=== PATIENT | male | born 1960 | race Caucasian/White ===

== ENCOUNTER 2023-12-17 09:18 | Inpatient (IN) | payer OTHER, SELFPAY ==
[2023-12-17] VITALS (23 sets, daily range): BP systolic 115–167; BP diastolic 70–104; PULSE 56–94; RESP 12–20; TEMP 36.3–36.9; O2SAT 95–99; BMI 32.0; BMI 31.2
--- NOTE | 2023-12-17 09:32 | ED.VIS.CHEST ---
HPI History of Present Illness Chief Complaint: Chest Pain Onset/Context/Timing Onset: Today and Hours (3) Activity at onset: sudden Timing: Continuous Quality: Positive for Pressure and Tightness Location: Substernal Worsened By: Nothing Relieved By: NTG Associated Symptoms: Positive for Diaphoresis and Dyspnea; Negative for Nausea, Vomiting, Cough, Fever, Lightheadedness or Palpitations Narrative Narrative: Patient presents with chest pain that began this morning approximately 3 hours prior to arrival. Patient states the pain is over the substernal area. Patient states it came on rather suddenly. Patient describes it as pressure and tightness. Patient states nothing makes it worse. Patient states he took nitroglycerin at home which improved his pain. Patient admits to some diaphoresis and shortness of breath. Patient denies any nausea or vomiting. Patient denies any palpitations. Patient has a history of coronary artery disease. [facility] Medical History Hyperlipidemia Hypertension Home Medications alprazolam 0.5 mg tablet 0.25 mg PO BID PRN PRN Anxiety 11/24/13 [History Last Taken Unknown] amoxicillin 875 mg-potassium clavulanate 125 mg tablet 1 tab PO Q12H ##20 12/13/13 [Rx Last Taken Unknown] aspirin 325 mg tablet 325 mg PO DAILY@0800 12/13/13 [History Last Taken Unknown] atorvastatin 40 mg tablet 40 mg PO QHS 12/13/13 [History Last Taken Unknown] clopidogrel 75 mg tablet 75 mg PO DAILY 12/13/13 [History Last Taken Unknown] Allergy/AdvReac Type Severity Reaction Status Date / Time No Known Allergies Allergy Verified 11/24/13 22:41 Surgical History H/O hernia repair History of heart artery stent History of knee surgery History of open heart surgery Social History Smoking Status: Never smoker ROS ROS ED Constitutional Constitutional ED: Denies chills or fever(s) Eyes Eyes: Denies blurry vision or change in vision ENT ENT ED: Denies rhinorrhea or sore throat Cardiovascular Cardiovascular: Reports chest pain; Denies palpitations Respiratory/Chest Respiratory/Chest: Denies cough or dyspnea Gastrointestinal Gastrointestinal: Denies nausea or vomiting Genitourinary Genitourinary ED: Denies dysuria or hematuria Musculoskeletal Musculoskeletal: Denies back pain or neck pain Integumentary Denies abscess or rash Neurologic Neurologic: Denies headache(s) or weakness Allergic/Immunologic Allergic/Immunologic ED: Denies mouth swelling or urticaria EXAM Physical Exam Const Vital Signs: 12/17/23 09:19 12/17/23 09:31 12/17/23 09:31 Temperature 97.8 F Temperature Source Temporal Pulse Rate 72 84 Respiratory Rate 16 17 Respiratory Effort Normal Blood Pressure 159/87 H 161/94 H Blood Pressure Mean 111 116 Pulse Ox 98 99 Oxygen Delivery Method Room Air Room Air 12/17/23 09:33 12/17/23 09:36 12/17/23 09:54 Temperature Temperature Source Pulse Rate 74 Respiratory Rate 17 14 Respiratory Effort Blood Pressure 166/82 H 151/93 H Blood Pressure Mean 112 Pulse Ox 99 Oxygen Delivery Method Room Air Room Air 12/17/23 10:02 Temperature Temperature Source Pulse Rate 74 Respiratory Rate 12 Respiratory Effort Blood Pressure 164/91 H Blood Pressure Mean 115 Pulse Ox 98 Oxygen Delivery Method Room Air Positive well nourished and well developed General Appearance ED: well developed and NAD HEENT Reports moist mucous membranes Neck supple and no JVD Resp normal respiratory effort and clear to auscultation bilaterally Cardio regular rate and regular rhythm Extremity normal to inspection General Extremety ED: Negative for edema, pulses abnormal or tenderness General Extremity: Negative for edema or pulses abnormal Neuro oriented x3, CN's II-XII intact bilaterally and no sensory deficits noted Sensorium / Orientation: awake and alert Motor Exam: strength 5/5 throughout Psych mental status grossly normal Heart Score History: Highly Suspicious ECG: Significant ST-Depression Age: >45 - <65 years Risk Factors: >/= 3 Risk Factors or History of CAD Score: 7 MDM MDM MDM Narrative Medical decision making narrative: Differential diagnosis includes cardiac dysrhythmia, cardiac ischemia, VA, and GERD. EKG will be obtained to assess for cardiac dysrhythmia and cardiac ischemia. CBC will be obtained to assess for leukocytosis and anemia. Basic metabolic profile will be obtained to assess for electrolyte abnormality and renal function. PT with INR and PTT will be obtained to assess for coagulopathy. High-sensitivity troponin will be obtained to assess for cardiac ischemia. Lab Data Attestation: I reviewed the patient's lab results. Lab results narrative: CBC was reviewed and was within normal limits. PT with INR and PTT were reviewed and were within normal limits. Labs: Laboratory Results - last 24 hr 12/17/23 09:35 WBC 6.5 RBC 4.68 Hgb 14.7 Hct 43.2 MCV 92.3 MCH 31.4 MCHC 34.0 RDW Std Deviation 40.3 RDW Coeff of Sea 11.9 Plt Count 234 MPV 8.7 Immature Gran % (Auto) 0.500 Neut % (Auto) 72.2 H Lymph % (Auto) 18.2 L [place] % (Auto) 7.7 Eos % (Auto) 0.8 Baso % (Auto) 0.6 Absolute Neuts (auto) 4.7 Absolute Lymphs (auto) 1.18 Nucleated RBC % 0 PT 13.2 INR 1.0 APTT 28.4 EKG Initial EKG: Attestation: I personally reviewed and interpreted this EKG as follows: Interpretation: Sinus Rhythm, S-T Elevation (III, and aVF) and S-T Depression (I, aVL, V3 through V6) Comments: EKG was obtained. On my independent interpretation, it shows normal sinus rhythm with a rate of 75. ID interval was normal at 196 ms. QRS interval was normal at 92 ms. QTc interval was normal at 437 ms. There is left axis deviation at -77. There is ST elevation in leads III and aVF. There is ST depression in I and aVL along with V3 through V6. 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 Patient was given heparin, Brilinta, and baby aspirin. Case was discussed with Dr. Bowen from cardiology. He will take the patient to the [facility]. Case was discussed with the hospitalist. He will admit the patient after the patient goes to the [facility]. Critical Care Time Critical Care Time: Yes Critical care time (excluding procedures): 30-74 minutes (33), Including time spent:, Discussing w/Patient &/or Family/Inspector Bullet Slugs, Discussing w/Consultants, Arranging Admission or Transfer and Performing Direct Patient Care at Bedside Discharge Plan Dx/Rx/DC Orders Clinical Impression: Acute ST elevation myocardial infarction (STEMI), Hypercholesterolemia, Hypertension Disposition Disposition: Acute Care Hospital [facility]
--- NOTE | 2023-12-17 09:33 | EKG12_ITS ---
Test Reason : CP Blood Pressure : / mmHG Vent. Rate : 075 BPM Atrial Rate : 075 BPM P-R Int : 196 ms QRS Dur : 092 ms QT Int : 392 ms P-R-T Axes : 070 -77 109 degrees QTc Int : 437 ms Critical Test Result: STEMI Normal sinus rhythm Left axis deviation Incomplete right bundle branch block Inferior infarct (cited on or before 24-NOV-2013) Marked ST abnormality, possible lateral subendocardial injury ACUTE OR / STEMI Consider right ventricular involvement in acute inferior infarct Abnormal ECG When compared with ECG of 13-DEC-2013 17:25, Incomplete right bundle branch block is now Present Borderline criteria for Anterior infarct are now Present Confirmed by Kam Perera ([id number]), newspaper or periodical editor DEBBIE EISENBERG ([id number]) on 12/19/2023 10:25:33 AM Referred By: Hannah Bowen Confirmed By:Kam Perera
--- OUTSIDE RECORDS SUMMARY | 2023-12-17 09:39 | XMS RPT_ITS | CCD ---
Author Name Unknown Address [address] [place] [address] Organization [facility] Results Test Name Value Interpretation Reference Range Facil ity Summary Purpose Family History No Family History Records Found Advance Directives No Advanced Directives Records Found Additional Source Comments (unrecognized sect ion and content) No Status Records Found INFORMATION SOURCE (unrecogn ized section and content) FOR RECORDS PERTAINING TO PATIENTS WHO ARE OR HAVE BEEN ENROLLED IN A CHEMICAL DEPENDENCY/SUBSTANCEABUSE PROGRAM, SOME INFORMATION MAY BE OMITTED. This clinical summary was aggregated from multiple sources. Caution should be exercised in using it in the provision of clinical care. This summary normalizes information from multiple sources, and as a consequence, information in this document may materially change the coding, format and clinical context of patient data. In addition, data may be omitted in some cases. CLINICAL DECISIONS SHOULD BE BASED ON THE PRIMARY CLINICAL RECORDS. [employer] provides no warranty or guarantee of the accuracy or completeness of information in this document.
[2023-12-17] MEDS: TICAGRELOR 90 MG TABLET 180 MG PO (09:41)
[2023-12-17] MEDS: Heparin Injection (Vial) 5,000 UNIT/ML VIAL 4000 UNIT IV (09:41)
[2023-12-17] MEDS: Aspirin 81 MG TAB.CHEW 324 MG PO (09:41)
[2023-12-17 09:50] LABS: Absolute Lymphocyte Count 1.18 X10^3/uL (0.83-4.51); Absolute Neutrophil Count 4.7 X10^3/uL (2.0-7.7); Basophil# 0.04 X10^3/uL; Basophil% 0.6 % (0-1); Eosinophil# 0.05 X10^3/uL; Eosinophils% 0.8 % (0-5); Hematocrit 43.2 % (40-54); Hemoglobin 14.7 g/dL (13.0-16.5); Lymphocyte # 1.18 X10^3/ul (0.83-4.51); Lymphocyte % 18.2 % (19-41); Mean Corpuscular Hgb 31.4 pg (27.0-32.0); Mean Corpuscular Volume 92.3 fL (80-94); Mean Platelet Vol. 8.7 fl (6.2-12.0); Monocyte% 7.7 % (0-10); NRBC Flagged by Analyzer 0 % (0-5); Neutrophil % 72.2 % (47-70); Platelet Count 234 K/mm3 (150-450); RBC Distribution Width CV 11.9 % (11.6-14.6); RBC Distribution Width SD 40.3 fl (35.1-43.9); Red Blood Count 4.68 M/mm3 (4.6-6.2); White Blood Count 6.5 K/mm3 (4.4-11.0)
[2023-12-17 10:00] LABS: Partial Thromboplast Time 28.4 Seconds (24.1-36.2); Prothrombin Time (Protime)PT. 13.2 SECONDS (11.7-14.9)
[2023-12-17 10:06] LABS: Anion Gap 4 (5-15); BUN 16 mg/dL (7-18); BUN/Creat Ratio 12.9 RATIO (10-20); Calcium,Total 9.4 mg/dL (8.5-10.1); Chloride 105 mmol/L (98-107); Creatinine, Serum 1.24 mg/dL (0.70-1.30); EST Glomerular Filtration Rate 63 mL/min (>60); Est Glom Filt Rate - Afr Amer 76 mL/min (>60); Estimated Creatinine Clearance 73.68 ml/min; Glucose 125 mg/dL (74-106); Sodium Level 136 mmol/L (136-145); Troponin-I HS 302 pg/mL (3.0-78.0)
--- NOTE | 2023-12-17 11:09 | PCM.HP.STD ---
HPI - General General Date of Admission: 12/17/23 Date of Service: 12/17/23 Chief Complaint: chest pain HPI Narrative NHI BAUTISTA, is a 63 M who presents 2-day h/o chest pain. Chest pain was intermittent. Patient was sent to ED at behest of his spouse. Pt found to have ST elevations in III and aVr with reciprocal changes in aVl. STEMI alert called. Pt brought to the [facility] labou[facility] and had stent placed to SVG to OM1. After cath, patient still having chest pain but otherwise feels well. [facility] Medical History CAD (coronary artery disease) Hyperlipidemia Hypertension Home Medications alprazolam 0.5 mg tablet 0.25 mg PO BID PRN PRN Anxiety 11/24/13 [History Last Taken Unknown] amoxicillin 875 mg-potassium clavulanate 125 mg tablet 1 tab PO Q12H ##20 12/13/13 [Rx Last Taken Unknown] aspirin 325 mg tablet 325 mg PO DAILY@0800 12/13/13 [History Last Taken Unknown] atorvastatin 40 mg tablet 40 mg PO QHS 12/13/13 [History Last Taken Unknown] clopidogrel 75 mg tablet 75 mg PO DAILY 12/13/13 [History Last Taken Unknown] Allergy/AdvReac Type Severity Reaction Status Date / Time No Known Allergies Allergy Verified 11/24/13 22:41 Family History (Updated 12/17/23 @ 12:[address] Brandon Hernandez DO) Father CAD (coronary artery disease) Surgical History H/O hernia repair History of heart artery stent History of knee surgery History of open heart surgery Social History (Updated 12/17/23 @ 12:[address] Brandon Hernandez DO) Smoking Status: Never smoker alcohol intake: current alcohol intake frequency: 0-2 drinks per day Alcohol type: wine ROS ROS Narrative All review of systems were negative except as mentioned above in the history of present illness and the other review of systems. Vital Signs Vital Signs Vital Signs: 12/17/23 09:19 12/17/23 09:31 12/17/23 09:31 Temperature 36.6 C Temperature Source Temporal Pulse Rate 72 84 Respiratory Rate 16 17 Respiratory Effort Normal Blood Pressure 159/87 H 161/94 H Blood Pressure Mean 111 116 Pulse Ox 98 99 Oxygen Delivery Method Room Air Room Air 12/17/23 09:33 12/17/23 09:36 12/17/23 09:54 Temperature Temperature Source Pulse Rate 74 Respiratory Rate 17 14 Respiratory Effort Blood Pressure 166/82 H 151/93 H Blood Pressure Mean 112 Pulse Ox 99 Oxygen Delivery Method Room Air Room Air 12/17/23 10:02 12/17/23 10:22 Temperature 36.3 C L Temperature Source Pulse Rate 74 94 Respiratory Rate 12 16 Respiratory Effort Blood Pressure 164/91 H 159/93 H Blood Pressure Mean 115 115 Pulse Ox 98 99 Oxygen Delivery Method Room Air Weight Weight: 101.333 kg Body Mass Index (BMI) 32.0 Physical Exam Const alert and no apparent distress Constitutional Narrative: Appears comfortable. HEENT normocephalic and head/scalp atraumatic Resp normal respiratory effort, no retractions, no use of accessory muscles and clear to auscultation bilaterally Cardio regular rate, regular rhythm, S1 normal heart sound and S2 normal heart sound GI normal to inspection, nondistended, normoactive bowel sounds, soft to palpation, non-tender and non-distended Extremity normal to inspection and full ROM Neuro Sensorium / Orientation: awake and alert Results Lab / Micro Data 12/17/23 09:35 12/17/23 09:35 Labs: Laboratory Results - last 24 hr 12/17/23 09:35: WBC 6.5, RBC 4.68, Hgb 14.7, Hct 43.2, MCV 92.3, MCH 31.4, MCHC 34.0, RDW Std Deviation 40.3, RDW Coeff of Sea 11.9, Plt Count 234, MPV 8.7, Immature Gran % (Auto) 0.500, Neut % (Auto) 72.2 H, Lymph % (Auto) 18.2 L, [place] % (Auto) 7.7, Eos % (Auto) 0.8, Baso % (Auto) 0.6, Absolute Neuts (auto) 4.7, Absolute Lymphs (auto) 1.18, Nucleated RBC % 0, PT 13.2, INR 1.0, APTT 28.4, Sodium 136, Potassium 4.0, Chloride 105, Carbon Dioxide 27.0, Anion Gap 4 L, BUN 16, Creatinine 1.24, Estim Creat Clear Calc 73.68, Est GFR (MDRD) Af Amer 76, Est GFR (MDRD) Non-Af 63, BUN/Creatinine Ratio 12.9, Glucose 125 H, Calcium 9.4, Troponin I High Sens 302 H* EKG Initial EKG: Attestation: I personally reviewed and interpreted this EKG as follows: Prior EKG tracings: available for review EKG Rhythm Intrepretation: Sinus Rhythm (ST elevation in III and aVF.) Imaging On my evaluation, final report pending, appears unremarkable. No evidence of effusion, infiltrate or pleural effusions. Assessment & Plan Assessment/Plan (1) Acute ST elevation myocardial infarction (STEMI): QUALIFIERS: Involved coronary artery: unspecified coronary artery Qualified Code(s): I21.3 - ST elevation (STEMI) myocardial infarction of unspecified site PLAN: Plan STEMI status post PCI to SVG to OM1. continue with aspirin, ticagrelor. check echo patient did have hypokinesis noted on the fluoroscopy. cardiology following. Chronic conditions: HTN HLP: Continue with statin CAD s/p CABG as above. Patient had a three-vessel bypass at [facility]. VTE prophylaxis: SCDs AURORA Bowen. Charges/Coding Visit Charges Inpatient E&M: 97096 Init Hosp L3
--- NOTE | 2023-12-17 12:03 | ECHOCS_ITS ---
Reason For Study: STEMI Procedure This was a 2D Doppler, Color Flow transthoracic echocardiogram. The study was technically difficult. Contrast injection was performed. Exam performed portable in patient room. Left Ventricle Normal size and thickness. Posterior and lateral hypokinesis. Estimated EF 40 to 45%. Right Ventricle Mildly dilated right ventricle. Atria There is severe biatrial dilatation. Mitral Valve Trivial mitral valve insufficiency. Tricuspid Valve Trivial tricuspid valve insufficiency. Unable to estimate RV systolic pressure due to insufficient tricuspid regurgitant envelope. Aortic Valve Trisinus/trileaflet aortic valve. Pulmonic Valve The pulmonic valve is not well visualized. Mild (1+) pulmonic valve insufficiency. Great Vessels Normal sized aortic root. Pericardium/Pleural No pericardial effusion. Medication Diluted definity 3ml given slow IV push to enhance endocardial definition. MMode/2D Measurements & Calculations LVIDd: 4.8 cm IVSd: 0.83 cm Ao root diam: 3.4 cm LVIDs: 3.8 cm LVPWd: 0.99 cm LA dimension: 5.8 cm FS: 19.8 % LAV(MOD-bp): 54.4 ml LVAd ap4: 31.9 cm2 SV(MOD-sp4): 43.0 ml LAV(MOD-bp) Indexed: 24.9 ml/m2 LVLd ap4: 8.5 cm LAV(MOD-sp2): 41.5 ml EDV(MOD-sp4): 101.2 ml LAV(MOD-sp4): 67.3 ml EDV(sp4-el): 101.5 ml LVAs ap4: 22.3 cm2 LVLs ap4: 7.1 cm ESV(MOD-sp4): 58.1 ml ESV(sp4-el): 59.4 ml EF(MOD-sp4): 42.5 % EF(sp4-el): 41.5 % SV(sp4-el): 42.1 ml LA A4 area: 22.2 cm2 Time Measurements MV dec time: 0.20 sec Doppler Measurements & Calculations MV E max eric: 57.9 cm/sec Lat Peak E' Eric: 8.5 cm/sec Med Peak E' Eric: 5.3 cm/sec MV A max eric: 79.2 cm/sec E/E' lat: 6.8 E/E' med: 10.8 MV E/A: 0.73 MV V2 max: 82.6 cm/sec MV P1/2t max eric: 67.3 cm/sec Ao V2 max: 89.8 cm/sec MV max P.7 mmHg MV P1/2t: 65.2 msec Ao max P.2 mmHg MV V2 mean: 39.4 cm/sec MV mean P.75 mmHg MV dec slope: 302.5 cm/sec2 MV V2 VTI: 25.4 cm MVA(P1/2t): 3.4 cm2 LV V1 max: 95.1 cm/sec PA V2 max: 125.8 cm/sec LV V1 max P.6 mmHg PA V2 mean: 83.8 cm/sec ECHO/Echo Complete W/ Contrast Interpretation Summary Posterior and lateral hypokinesis. Estimated EF 40 to 45%. Mildly dilated right ventricle. Mild (1+) pulmonic valve insufficiency. Ordering Physician: Brandon Hernandez Referring Physician: Hannah Bowen Performed By: Benitez Groves RCS
--- NOTE | 2023-12-17 12:15 | EKG12_ITS ---
Test Reason : POST STEMI Blood Pressure : / mmHG Vent. Rate : 060 BPM Atrial Rate : 060 BPM P-R Int : 232 ms QRS Dur : 098 ms QT Int : 448 ms P-R-T Axes : 058 -46 099 degrees QTc Int : 448 ms Sinus rhythm with sinus arrhythmia with 1st degree A-V block Left axis deviation Inferior infarct , age undetermined Abnormal ECG When compared with ECG of 17-DEC-2023 09:24, MANUAL COMPARISON REQUIRED, DATA IS UNCONFIRMED Confirmed by Kam Perera ([id number]), social media editor MOOSE LYNN ([id number]) on 12/20/2023 9:49:28 AM Referred By: Hannah Bowen Confirmed By:Kam Perera
--- NOTE | 2023-12-17 12:19 | CRPHASE1 ---
Patient Communication Patient Information PHII Cardiac Rehab Discussed with Patient:: Yes Guide to Cardiac Rehab Given to Patient:: Yes Communication to Cardiac Rehab Choice Program [facility] CR PHII:: Communication Given to CR School Photographs Detailer:: Hannah Bowen Refer Phase II Cardiac Rehab:: Yes Sessions:: 36 sessions - 3 days/wk, 12 weeks Cardiac Rehabilitation Info Program Information Cardiac Rehabilitation Program Information: Cardiac Rehab The cardiac rehab team at [facility] consists of highly skilled exercise physiologists, nurses, respiratory therapists and physicians working together with you. Our purpose is to help you have a full recovery and achieve the goals you set for yourself. Over the years many of our patients have returned to activities they assumed they would never do again! We can help restore your confidence and motivation to make lifestyle changes that can have a significant impact on your health and quality of life! We can help answer questions and concerns you may have about exercise, lifestyle, medications, diet, stress and anxiety which are common following a hospitalization. WE monitor ECG and vital signs during exercise and discuss your progress with you and report to your physician(s). Cardiac Rehab is proven to help reduce readmissions, improve functional capacity and lower recurrence of problems with your heart. Our Cardiac Rehab program is Certified by the [place] [employer]-Vascular [employer] Pulmonary [employer] (AACVPR) and Accredited by the [place] [employer] through our [facility]. You can contact us at . We invite you to call us with your questions or to get started in our program. If you have other questions or concerns be sure to ask your physician/provider during your follow-up visit. WE look forward to seeing you!
--- NOTE | 2023-12-17 12:20 | CRPH1.INSTRU ---
General Education Discussed with Patient CAD and cardiac anatomy and function:: Patient communicates acknowledgment Explanation of diagnoses and procedures:: Patient communicates acknowledgment Sign/Symptoms of LA:: Patient communicates acknowledgment Antiplatelet therapy: Patient communicates acknowledgment Proper use of NTG-SL: Patient communicates acknowledgment Emergency procedures and activation of EMS: Patient communicates acknowledgment Compliance of all prescribed medications: Patient communicates acknowledgment Smoking Risk Factors Patient Nicotine/Smoking Risk Factors Are:: Never smoked Dyslipidemia Risk Factors Patient Dyslipidemia Risk Factors Are:: Total Cholesterol, Triglycerides, HDL and LDL Recommendations Recommendations Include:: Lipid profile not available, Reviewed NCEP/ATP guidelines and Therapeutic Lifestyle Change dietary guidelines Response Code Dyslipidemia Response Code:: Patient communicates acknowledgment Overweight/Obesity Risk Factors Patient Overweight/Obesity Risk Factors Are:: Obesity - > or = 30 Recommendations Recommendations Include:: Weight loss of 5-10%, Reduced calorie diet and Exercise 5-7 times/week Response Code Overweight/Obesity:: Patient communicates acknowledgment Hypertension Risk Factors Patient Hypertension Risk Factors Are:: No documented hx of HTN Heart Disease Risk Factors Patient Heart Disease Risk Factors Are:: Previous cardiac event Recommendations Recommendations Include:: Educated family members of their risk and Educated family members of importance of prevention of heart disease Response Code Heart Disease Response Code:: Patient communicates acknowledgment and Family communicates acknowledgment Diabetes Risk Factors Patient Diabetes Risk Factors Are:: No documented hx of diabetes Metabolic Syndrome Risk Factors Patient Metabolic Syndrome Risk Factors Are [3 of 5]:: Fasting blood sugar > 100 mg/dL, Waist circumference > 35 [female] or 40 [male], High triglyceride >150 and Low HDL <40 [male] or < 50 [female] Recommendations Recommendations Include:: Reinforce compliance to risk factor modifications and Encouraged follow-up with Primary Care Physician Response Code Metabolic Syndrome Response Code:: Patient communicates acknowledgment Sedentary Risk Factors Patient Sedentary Risk Factors Are:: Lack of regular exercise Recommendations Recommendations Include:: Aerobic exercise 5-7 times/week for 20-30 minutes continuously, Benefits of regular exercise, Discussed home walking program and Monitored Outpatient Cardiac Rehab Response Code Sedentary Response Code:: Patient communicates acknowledgment Stress Recommendations Recommendations Include:: Identification of stressors, and assessment of coping skills and Stress management techniques Response Code Stress Response Code:: Patient communicates acknowledgment
--- NOTE | 2023-12-17 12:25 | RAD_ITS ---
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 COMPARISON: XR Chest dated 12/13/2023 FINDINGS: LUNGS AND PLEURAL SPACES: Normal. No consolidation or edema. No pneumothorax. No effusion. HEART: Surgical changes of coronary artery bypass graft (CABG). Normal heart size. MEDIASTINUM: No mediastinal or hilar mass. BONES/JOINTS: No acute abnormality. RAD/Chest 1 View (Portable) IMPRESSION: No acute cardiopulmonary abnormality. Interval CABG. Electronically Signed: Josias Aden MD at 14:10 EST ,
[2023-12-17] MEDS: 0.9% Normal Saline (1000mL) 1,000 ML 80 ML IV (12:30)
[2023-12-17] MEDS: Acetaminophen 325 MG Tablet 650 MG PO ×2 (12:54→22:07)
--- NOTE | 2023-12-17 13:37 | EKG12_ITS ---
Test Reason : chest pain Blood Pressure : / mmHG Vent. Rate : 062 BPM Atrial Rate : 062 BPM P-R Int : 220 ms QRS Dur : 098 ms QT Int : 420 ms P-R-T Axes : 072 -51 114 degrees QTc Int : 426 ms Sinus rhythm with 1st degree A-V block Left axis deviation Inferior infarct , age undetermined Abnormal ECG When compared with ECG of 17-DEC-2023 12:15, MANUAL COMPARISON REQUIRED, DATA IS UNCONFIRMED Confirmed by Kam Perera ([id number]), graphic editor DEBBIE EISENBERG ([id number]) on 12/20/2023 7:47:30 AM Referred By: Hannah Bowen Confirmed By:Kam Perera
[2023-12-17] MEDS: Nitroglycerin (INPATIENT USE) 0.4 MG TAB.SUBL 0.400000000000000022 MG SL (13:57)
--- NOTE | 2023-12-17 14:39 | CL.I_ITS ---
Patient Name: NHI BAUTISTA Study Date: 12/17/2023 Performing: Jonathan Bowen MD Ht: 70 inches 177.8 cm : 1960 Wt: 223.7 lbs 101.33 kg Age: 63 Gender: male BSA: 2.19 PROCEDURE(S) PERFORMED DC03-(31219)LHC/COR/LV/CABG DC11-(59196)AO ROOT ANGIO WITH HEART CATH IC16-(89895/C9606)AMI, MARIVEL OR PTCA, ARTERY/GRAFT, SINGLE VESSEL CLINICAL PROFILE AND CO-MORBIDITIES Indications: ACS <= 24 hrs Heart Failure: None CONCLUSIONS CAD as described. Patent 3 out of 3 bypass grafts with stenoses as described. LVEF is 45 to 50% with mid inferior hypokinesis. No significant aortic stenosis or mitral regurgitation. Normal aortic root dimensions. Successful MARIVEL to SVG to OM1 RECOMMENDATIONS Medical therapy for rest of the CAD. DESCRIPTION OF PROCEDURE The patient arrived to the procedure lab. The risks and benefits of the procedure as well as a full description of our services here and lack of surgical backup were fully explained to the patient and/or their significant other prior to the catheterization. The Timeout was completed, verifying the correct patient and procedure. The patient's procedural site was prepped and draped in the usual fashion. Local anesthetic was given subcutaneously to right groin region with Lidocaine 2%. Using a modified Seldinger technique, arterial access was obtained via the right femoral artery, a 6Fr sheath was inserted.. Left Coronary Artery selective angiography was performed in multiple views using a 5 Fr. JL4 catheter. Right Coronary Artery selective angiography was then performed in multiple views using a 5 Fr. JR 4 catheter. Saphenous Vein graft to the om1 selective angiography was performed in multiple views using a 5 Fr. JR 4 catheter. Left internal mammary artery graft to the LAD selective angiography was performed in multiple views using a 5 Fr. IM catheter. Left Ventriculography was performed in NOLEN projection using a 5 Fr. Pigtail catheter. LV to AO pullback pressures were then recordedThe images were reviewed and options discussed. A decision was then made to proceed with an Intervention, IVUS or other adjunct procedure. jr4 Guide catheter was inserted and engaged into the SVG to the OM 1. bmw Guide wire was advanced to the 1st OM. sc medtronic 2.5 x 12 Balloon catheter was advanced across lesion in the svg-om1 mid PTCA balloon inflated at 8 atms for 15 secs. Angiogram performed post balloon dilatation. low frontier 4.0 x 15 Drug Eluting stent was advanced across the lesion in the svg-om1 mid Angiogram performed post stent deployment. Angiogram performed post stent deployment from different angle Contrast was injected through the sheath and the Right Iliac and Femoral artery were assessed for possible closure device. The arterial sheath was pulled and a Perclose closure device was deployed for hemostasis CORONARY ANGIOGRAPHY DOMINANCE: Co- Dominant LEFT HEART ASSESSMENT Left Ventricular Ejection Fraction: by LV Gram 45-50 % Inferior Mid Hypokinesis - Moderate LEFT MAIN: Mild luminal irregularities LEFT ANTERIOR DESCENDING ARTERY: PROX LAD: 100 % Stenosis CIRCUMFLEX ARTERY: Moderate diffuse disease in the AV groove circumflex. OM1 is occluded in the proximal portion. OM 2 has severe diffuse disease proximally with segment that appears to be subtotally or chronic totally occluded. This is a small vessel. The OM1 is a large branching vessel that is supplied by the SVG to OM1 RIGHT CORONARY ARTERY: RCA has severe diffuse disease proximally. The SVG to RCA seems to be connected to an RV marginal that is small diameter but long vessel. Soon after the vein graft anastomosis this vessel appears to be chronically totally occluded with bridging collaterals. GRAFTS: JONAS graft to the LAD is patent Saphenous Vein graft to the 1st OM has a distal lesion of 99 % Saphenous Vein graft to the RCA is patent. However the [place] vessel is occluded distal to the bypass graft anastomosis and fills via bridging collaterals. VALVE FINDINGS: No Aortic Valve Stenosis No Mitral Insufficency AORTIC ROOT: Angiographically normal INTERVENTION INFORMATION LESION SITE: Vein > to 1st OM Segment Number: 20-First obtuse marginal branch segment - 1st OM , Lesion Location: Body Lesion Complexity: High/C, chronic total occlusion: No, lesion at bifurcation: No, thrombus present: No, lesion length: 12 mm, culprit lesion: Yes, Previously treated lesion: No Pre Stenosis: 99 % Pre intervention DARRYN flow: 2 PROCEDURE: Drug Eluting Stent with pre dilatation. Post Stenosis: 0 % Post intervention DARRYN flow: 3 Lesion Devices: Medtronic SC EUPHORA RX 2.5x12 BALLOON Early .014 190cm [employer] [place] Straight Medtronic 6 Fr JR4.0 100cm Guide Catheter Medtronic 4.0 x 15 LOW FRONTIER MARIVEL COMPLICATIONS No Complications PROCEDURE MEDICATIONS Oxygen: 2 L/min via nasal cannula Heparin 5000 unit(s) IV 12/17/2023 10:44:04 Nitro 200 mcg IC 12/17/2023 10:54:32 SUMMARY OF HEMODYNAMIC DATA Time AIR REST ECG 10:15:17 AO 150/86 (115) SA 10:33:32 LV 141/-2, 6 11:18:27 LV 142/-7, 8 11:18:34 LV 159/0, 8 11:19:28 LVp 164/-5, 12 11:19:35 AOp 151/79 (111) 11:19:40 Signed By Jonathan Bowen MD On 12/17/2023 14:38:25 Jonathan Bowen MD
--- NOTE | 2023-12-17 14:40 | CON.PCM.CA_ITS ---
Assessment & Plan Assessment/Plan (1) Acute ST elevation myocardial infarction (STEMI): QUALIFIERS: Involved coronary artery: unspecified coronary artery Qualified Code(s): I21.3 - ST elevation (STEMI) myocardial infarction of unspecified site PLAN: Treated with drug-eluting stent to SVG to OM1. Patient has some residual CAD that is best treated medically at this time. Patient should be on aspirin 81 mg p.o. daily, Brilinta 90 mg p.o. twice daily. We do not know his home medications at this time and his family is getting them. He should be on a beta-bala, NAHEED inhibitor and a statin as well. HPI Consult Data Date of Consult: 12/17/23 HPI Narrative Reason for Consultation: STEMI HPI Narrative: NHI BAUTISTA, is a 63 M who presents with chest pain. EKG in the emergency room revealed subtle ST elevations in the inferior leads and also aVR and a STEMI alert was called. Patient has history of CAD status post CABG in 2018 at [facility] (JONAS to LAD, SVG to OM1, SVG to RCA) patient was brought emergently to the Physical Therapist Clinic Director and underwent coronary angiography which revealed 99% stenosis in the SVG to a large branching OM1 system. This was treated with d rug-eluting stent placement. Patient is doing well at the end of the procedure. Review of systems: All systems reviewed. All else is negative except that in HPI PFS Medical History (Updated 12/17/23 @ 13:04 by Molly Hanson) CAD (coronary artery disease) Chest pain Hyperlipidemia Hypertension Myocardial infarct Sleep apnea Home Medications alprazolam 0.5 mg tablet 0.25 mg PO BID PRN PRN Anxiety 11/24/13 [History Last Taken Unknown] amoxicillin 875 mg-potassium clavulanate 125 mg tablet 1 tab PO Q12H ##20 12/13/13 [Rx Last Taken Unknown] aspirin 325 mg tablet 325 mg PO DAILY@0800 12/13/13 [History Last Taken Unknown] atorvastatin 40 mg tablet 40 mg PO QHS 12/13/13 [History Last Taken Unknown] clopidogrel 75 mg tablet 75 mg PO DAILY 12/13/13 [History Last Taken Unknown] Allergy/AdvReac Type Severity Reaction Status Date / Time No Known Allergies Allergy Verified 11/24/13 22:41 Family History (Updated 12/17/23 @ 12:[address] Brandon Hernandez DO) Father CAD (coronary artery disease) Surgical History H/O hernia repair History of heart artery stent History of knee surgery History of open heart surgery Social History (Updated 12/17/23 @ 12:[address] Brandon Hernandez DO) Smoking Status: Never smoker alcohol intake: current alcohol intake frequency: 0-2 drinks per day Alcohol type: wine Physical Exam Const alert and oriented x3 HEENT normocephalic Eyes no scleral icterus Resp normal respiratory effort Cardio regular rate Psych mental status grossly normal Risk Stratification Risk Stratification Applicable: No Charges/Coding Visit Charges Inpatient E&M: 47334 Init Hosp L2 Objective Data Vital Signs: Vital Signs Temp Pulse Resp BP Pulse Ox O2 Del Method 98.5 F 66 17 120/70 96 Room Air 12/17/23 12:10 12/17/23 14:30 12/17/23 14:00 12/17/23 14:30 12/17/23 14:00 12/17/23 14:00 Oxygen Delivery Method Room Air Weight: 217 lb 13.067 oz Body Mass Index (BMI) 31.2 Intake & Output: Intake and Output for Last 24 Hours 12/15/23 12/16/23 12/17/23 23:59 23:59 23:59 Output Total 250 / 250 Balance -250 / -250 Lab / Micro Data 12/17/23 09:35 12/17/23 09:35 Labs: Laboratory Results - last 24 hr 12/17/23 09:35: WBC 6.5, RBC 4.68, Hgb 14.7, Hct 43.2, MCV 92.3, MCH 31.4, MCHC 34.0, RDW Std Deviation 40.3, RDW Coeff of Sea 11.9, Plt Count 234, MPV 8.7, Immature Gran % (Auto) 0.500, Neut % (Auto) 72.2 H, Lymph % (Auto) 18.2 L, [place] % (Auto) 7.7, Eos % (Auto) 0.8, Baso % (Auto) 0.6, Absolute Neuts (auto) 4.7, Absolute Lymphs (auto) 1.18, Nucleated RBC % 0, PT 13.2, INR 1.0, APTT 28.4, Sodium 136, Potassium 4.0, Chloride 105, Carbon Dioxide 27.0, Anion Gap 4 L, BUN 16, Creatinine 1.24, Estim Creat Clear Calc 73.68, Est GFR (MDRD) Af Amer 76, Est GFR (MDRD) Non-Af 63, BUN/Creatinine Ratio 12.9, Glucose 125 H, Calcium 9.4, Troponin I High Sens 302 H* Cardiology Labs/Tests 12/17/23 09:35: WBC 6.5, RBC 4.68, Hgb 14.7, Hct 43.2, MCV 92.3, MCH 31.4, MCHC 34.0, Plt Count 234, MPV 8.7, Immature Gran % (Auto) 0.500, Neut % (Auto) 72.2 H , Lymph % (Auto) 18.2 L, [place] % (Auto) 7.7, Eos % (Auto) 0.8, Baso % (Auto) 0.6, Absolute Neuts (auto) 4.7, Nucleated RBC % 0, PT 13.2, INR 1.0, APTT 28.4, Sodium 136, Potassium 4.0, Chloride 105, Carbon Dioxide 27.0, Anion Gap 4 L, BUN 16, Creatinine 1.24, Est GFR (MDRD) Af Amer 76, Est GFR (MDRD) Non-Af 63, BUN/Creatinine Ratio 12.9, Glucose 125 H, Calcium 9.4 Rhythm: EKG: ECHO: Stress Test: Cardiac Cath: PCI: CT Surgery: Holter monitor: EPS: PPM: CXR: Chest CT Scan: Radiography Diagnostic Testing: Radiology Impression Chest X-Ray 12/17/23 12:25 IMPRESSION: No acute cardiopulmonary abnormality. Interval CABG. Electronically Signed: Josias Aden MD at 14:10 EST ,
[2023-12-17] MEDS: Carvedilol 6.25 MG Tablet PO (16:11)
[2023-12-17 17:37] LABS: Bedside Glucose 97 mg/dL (74-106)
--- NOTE | 2023-12-17 20:05 | NURSING ---
Pt provided decaf coffee as requested and family given regular coffee; family advised that visiting hours are over at 8p, they can finish their coffees and then say their goodbyes. of pt spoke up and stated, transportation is an inconvenience for us. Pt loudly asked She can't stay?! pointing to his . This RN replied to pt that he is in stable condition, exceptions are made for dying pts. offered to stay in waiting room, but no recliners are available. Pt asked, what if I were on a different floor? I responded that visitation rules may be different, but in ICU, with a stable ICU pt, visiting hours end at 8p and start again at 9a. Pt's asked, when do we need to leave? I responded when you're done with your coffees. Pt looked at and stated Take your time. Pt's IV disconnected and ACCOUNTANCY PROFESSOR walks w/pt in hallways per request.
[2023-12-17] MEDS: Atorvastatin Calcium 40 MG Tablet PO (22:08)
[2023-12-17] MEDS: amLODIPine 5 MG Tablet PO (22:08)
[2023-12-17] MEDS: MELATONIN 3 MG TABLET PO (22:08)
[2023-12-17] MEDS: TICAGRELOR 90 MG TABLET PO (22:08)
[2023-12-18] VITALS (15 sets, daily range): BP systolic 95–140; BP diastolic 65–94; PULSE 51–72; RESP 10–19; TEMP 36.1–36.7; O2SAT 91–979; BMI 32.0
[2023-12-18] MEDS: 0.9% Saline Lock 10 ML Syringe IV ×2 (04:16→10:16)
[2023-12-18 04:36] LABS: Absolute Lymphocyte Count 1.59 X10^3/uL (0.83-4.51); Basophil# 0.06 X10^3/uL; Basophil% 0.8 % (0-1); Eosinophil# 0.22 X10^3/uL; Eosinophils% 2.9 % (0-5); Hematocrit 38.8 % (40-54); Hemoglobin 13.3 g/dL (13.0-16.5); Lymphocyte # 1.59 X10^3/ul (0.83-4.51); Mean Corp Hgb Conc 34.3 g/dL (32-36); Mean Corpuscular Hgb 31.4 pg (27.0-32.0); Mean Corpuscular Volume 91.7 fL (80-94); Mean Platelet Vol. 8.9 fl (6.2-12.0); Monocyte# 0.67 X10^3/uL; Monocyte% 8.8 % (0-10); NRBC Flagged by Analyzer 0 % (0-5); Platelet Count 203 K/mm3 (150-450); RBC Distribution Width CV 11.9 % (11.6-14.6); RBC Distribution Width SD 39.8 fl (35.1-43.9); Red Blood Count 4.23 M/mm3 (4.6-6.2); White Blood Count 7.6 K/mm3 (4.4-11.0)
[2023-12-18 04:54] LABS: ALB/GLOB Ratio 1.2 RATIO (0.9-2.4); AST(SGOT) 35 U/L (15-37); Alanine Aminotransfer ALT/SGPT 37 U/L (16-61); Albumin, Serum 3.4 g/dL (3.2-5.0); Alkaline Phosphatase 109 U/L (45-117); Anion Gap 6 (5-15); BUN 15 mg/dL (7-18); BUN/Creat Ratio 14.3 RATIO (10-20); Calcium,Total 8.6 mg/dL (8.5-10.1); Chloride 106 mmol/L (98-107); Cholesterol 308 mg/dL (200); Creatinine, Serum 1.05 mg/dL (0.70-1.30); EST Glomerular Filtration Rate 76 mL/min (>60); Est Glom Filt Rate - Afr Amer 92 mL/min (>60); Estimated Creatinine Clearance 86.96 ml/min; Globulin 2.9 g/dL (2.2-4.2); Glucose 117 mg/dL (74-106); High Density Lipoprotein 55 mg/dL; Potassium 3.7 mmol/L (3.5-5.1); Protein, Total 6.3 g/dL (6.4-8.2); Sodium Level 136 mmol/L (136-145); Triglycerides 125 mg/dL; Very Low Density Lipoprotein 25 mg/dL (5-40)
--- NOTE | 2023-12-18 06:59 | PN.HOSP_ITS ---
Reason for Visit Reason for Visit: Diagnoses ST elevation (STEMI) myocardial infarction of unspecified site (12/17/23) Subjective Subjective Feels well. Anxious last night (typically anxious when he is in the hospital). No chest pain. Wants to go home. Objective Data Objective Data Vital Signs: Vital Signs Temp Pulse Resp BP Pulse Ox O2 Del Method 36.6 C 53 L 11 L 116/82 H 96 Room Air 12/18/23 04:00 12/18/23 06:00 12/18/23 06:00 12/18/23 06:00 12/18/23 06:54 12/18/23 06:54 Oxygen Delivery Method Room Air Weight: 101.2 kg Body Mass Index (BMI) 32.0 Intake & Output: Intake and Output for Last 24 Hours 12/16/23 12/17/23 12/18/23 23:59 23:59 23:59 Intake Total 350 / 350 1000 / 1000 Output Total 250 / 250 350 / 350 Balance 100 / 100 650 / 650 Lab / Micro Data 12/18/23 04:10 12/18/23 04:10 Labs: Laboratory Results - last 24 hr 12/17/23 09:35: WBC 6.5, RBC 4.68, Hgb 14.7, Hct 43.2, MCV 92.3, MCH 31.4, MCHC 34.0, RDW Std Deviation 40.3, RDW Coeff of Sea 11.9, Plt Count 234, MPV 8.7, Immature Gran % (Auto) 0.500, Neut % (Auto) 72.2 H, Lymph % (Auto) 18.2 L, [place] % (Auto) 7.7, Eos % (Auto) 0.8, Baso % (Auto) 0.6, Absolute Neuts (auto) 4.7, Absolute Lymphs (auto) 1.18, Nucleated RBC % 0, PT 13.2, INR 1.0, APTT 28.4, Sodium 136, Potassium 4.0, Chloride 105, Carbon Dioxide 27.0, Anion Gap 4 L, BUN 16, Creatinine 1.24, Estim Creat Clear Calc 73.68, Est GFR (MDRD) Af Amer 76, Est GFR (MDRD) Non-Af 63, BUN/Creatinine Ratio 12.9, Glucose 125 H, Calcium 9.4, Troponin I High Sens 302 H* 12/17/23 17:19: POC Glucose 97 12/18/23 04:10: WBC 7.6, RBC 4.23 L, Hgb 13.3, Hct 38.8 L, MCV 91.7, MCH 31.4, MCHC 34.3, RDW Std Deviation 39.8, RDW Coeff of Sea 11.9, Plt Count 203, MPV 8.9, Immature Gran % (Auto) 0.500, Neut % (Auto) 66.0, Lymph % (Auto) 21.0, [place] % (Auto) 8.8, Eos % (Auto) 2.9, Baso % (Auto) 0.8, Absolute Neuts (auto) 5.0, Absolute Lymphs (auto) 1.59, Nucleated RBC % 0, Sodium 136, Potassium 3.7, Chloride 106, Carbon Dioxide 24.0, Anion Gap 6, BUN 15, Creatinine 1.05, Estim Creat Clear Calc 86.96, Est GFR (MDRD) Af Amer 92, Est GFR (MDRD) Non-Af 76, BUN/Creatinine Ratio 14.3, Glucose 117 H, Calcium 8.6, Total Bilirubin 1.80 H, AST 35, ALT 37, Alkaline Phosphatase 109, Total Protein 6.3 L, Albumin 3.4, Globulin 2.9, Albumin/Globulin Ratio 1.2, Triglycerides 125, Cholesterol 308 H, LDL Cholesterol 228 H, VLDL Cholesterol 25, HDL Cholesterol 55 Radiography Diagnostic Testing: Radiology Impression Chest X-Ray 12/17/23 12:25 IMPRESSION: No acute cardiopulmonary abnormality. Interval CABG. Electronically Signed: Josias Aden MD at 14:10 EST , Physical Exam Const alert and no apparent distress HEENT head/scalp atraumatic and moist oral mucous membranes Resp normal respiratory effort, no retractions, no use of accessory muscles and clear to auscultation bilaterally Cardio regular rate, regular rhythm, S1 normal heart sound and S2 normal heart sound GI normal to inspection, nondistended, normoactive bowel sounds, soft to palpation, non-tender and non-distended Extremity Extremity Narrative: right groin catheterization site with slight bruising. Assessment & Plan Assessment/Plan (1) Acute ST elevation myocardial infarction (STEMI): QUALIFIERS: Involved coronary artery: unspecified coronary artery Qualified Code(s): I21.3 - ST elevation (STEMI) myocardial infarction of unspec ified site PLAN: Plan STEMI * symptoms had been intermittent over the preceeding couple days. Troponin only at 302. * status post PCI to SVG to OM1. * continue with aspirin, ticagrelor. * check echo patient did have hypokinesis noted on the fluoroscopy. * cardiology following. Elevated total bilirubin * no prior labs to compare * follow up in AM. Chronic conditions: * HTN * HLP: Cholesterol 228 while on 40 of atorvastatin, increase dose to 80 * CAD s/p CABG as above. Patient had a three-vessel bypass at [place]. VTE prophylaxis: SCDs Disposition: plan for home on 12/18 if remains stable. Today, the patient was asked about going home. I told him I did not recommended but he continued to still ask about going home. I told him I could discharge him home but his workup would be incomplete including his echocardiogram. I told him it is important to have echocardiogram for baseline so that can be compared to at a later point. I did recognize that there probably would be any significant change between today and another 24 hours but would recommend staying further. Elected his who shook her head. He agreed to staying in the hospital till tomorrow. I told him its most likely he will be discharged tomorrow after his echocardiogram and assuming there is no further events that he could probably be discharged after echocardiogram has been read. He did ask about getting something for anxiety. Told him that we can do that while he is in the hosp ital. He said he would like to have something for at home. As if he had issues with anxiety at home he was he said he does not. I told him that would be at the discretion of the oncoming physician whether or not they would prescribe short course of benzodiazepines for him upon discharge. Change to PCU status. Charges/Coding Visit Charges Inpatient E&M: 40027 Subs Hosp L2
--- NOTE | 2023-12-18 10:00 | EKG12_ITS ---
Test Reason : am ekg Blood Pressure : / mmHG Vent. Rate : 055 BPM Atrial Rate : 055 BPM P-R Int : 214 ms QRS Dur : 096 ms QT Int : 478 ms P-R-T Axes : 082 -52 136 degrees QTc Int : 457 ms Sinus bradycardia with 1st degree A-V block Left axis deviation Inferior infarct , age undetermined ST & T wave abnormality, consider lateral ischemia Abnormal ECG When compared with ECG of 17-DEC-2023 13:41, MANUAL COMPARISON REQUIRED, DATA IS UNCONFIRMED Confirmed by Kam Perera ([id number]), photographic editor DEBBIE EISENBERG ([id number]) on 12/20/2023 7:47:01 AM Referred By: Hannah Bowen Confirmed By:Kam Perera
[2023-12-18] MEDS: Aspirin 81 MG TAB.CHEW PO (10:09)
[2023-12-18] MEDS: Furosemide 40 MG Tablet PO (10:10)
[2023-12-18] MEDS: Losartan Potassium 50 MG Tablet PO (10:10)
[2023-12-18] MEDS: Carvedilol 6.25 MG Tablet PO (10:10)
[2023-12-18] MEDS: TICAGRELOR 90 MG TABLET PO ×2 (10:10→21:47)
--- NOTE | 2023-12-18 11:26 | PN.CARD_ITS ---
Subjective Subjective Doing well. Chest pain has resolved. Objective Data Vital Signs: Vital Signs Temp Pulse Resp BP Pulse Ox O2 Del Method 97.2 F L 72 14 118/85 H 96 Room Air 12/18/23 10:00 12/18/23 10:00 12/18/23 10:00 12/18/23 10:00 12/18/23 10:00 12/18/23 10:00 Oxygen Delivery Method Room Air Weight: 223 lb 1.725 oz Body Mass Index (BMI) 32.0 Intake & Output: Intake and Output for Last 24 Hours 12/16/23 12/17/23 12/18/23 23:59 23:59 23:59 Intake Total 350 / 350 1000 / 1000 Output Total 250 / 250 350 / 350 Balance 100 / 100 650 / 650 Lab / Micro Data 12/18/23 04:10 12/18/23 04:10 Labs: Laboratory Results - last 24 hr 12/17/23 17:19: POC Glucose 97 12/18/23 04:10: WBC 7.6, RBC 4.23 L, Hgb 13.3, Hct 38.8 L, MCV 91.7, MCH 31.4, MCHC 34.3, RDW Std Deviation 39.8, RDW Coeff of Sea 11.9, Plt Count 203, MPV 8.9 , Immature Gran % (Auto) 0.500, Neut % (Auto) 66.0, Lymph % (Auto) 21.0, [place] % (Auto) 8.8, Eos % (Auto) 2.9, Baso % (Auto) 0.8, Absolute Neuts (auto) 5.0, Absolute Lymphs (auto) 1.59, Nucleated RBC % 0, Sodium 136, Potassium 3.7, Chloride 106, Carbon Dioxide 24.0, Anion Gap 6, BUN 15, Creatinine 1.05, Estim Creat Clear Calc 86.96, Est GFR (MDRD) Af Amer 92, Est GFR (MDRD) Non-Af 76, BUN/Creatinine Ratio 14.3, Glucose 117 H, Calcium 8.6, Total Bilirubin 1.80 H, AST 35, ALT 37, Alkaline Phosphatase 109, Total Protein 6.3 L, Albumin 3.4, Globulin 2.9, Albumin/Globulin Ratio 1.2, Triglycerides 125, Cholesterol 308 H, LDL Cholesterol 228 H, VLDL Cholesterol 25, HDL Cholesterol 55 Cardiology Labs/Tests 12/18/23 04:10: WBC 7.6, RBC 4.23 L, Hgb 13.3, Hct 38.8 L, MCV 91.7, MCH 31.4, MCHC 34.3, Plt Count 203, MPV 8.9, Immature Gran % (Auto) 0.500, Neut % (Auto) 66.0, Lymph % (Auto) 21.0, [place] % (Auto) 8.8, Eos % (Auto) 2.9, Baso % (Auto) 0.8, Absolute Neuts (auto) 5.0, Nucleated RBC % 0, Sodium 136, Potassium 3.7, Chloride 106, Carbon Dioxide 24.0, Anion Gap 6, BUN 15, Creatinine 1.05, Est GFR (MDRD) Af Amer 92, Est GFR (MDRD) Non-Af 76, BUN/Creatinine Ratio 14.3, Glucose 117 H, Calcium 8.6, Total Bilirubin 1.80 H, Triglycerides 125, Cholesterol 308 H , LDL Cholesterol 228 H, VLDL Cholesterol 25, HDL Cholesterol 55 Rhythm: EKG: ECHO: Stress Test: Cardiac Cath: PCI: CT Surgery: Holter monitor: EPS: PPM: CXR: Chest CT Scan: Radiography Diagnostic Testing: Radiology Impression Chest X-Ray 12/17/23 12:25 IMPRESSION: No acute cardiopulmonary abnormality. Interval CABG. Electronically Signed: Josias Aden MD at 14:10 EST Reading Location ID and State: [address] [place] [address] Tel , Service support , Physical Exam Const alert and oriented x3 HEENT normocephalic Eyes no scleral icterus Resp normal respiratory effort Assessment & Plan Assessment/Plan (1) Acute ST elevation myocardial infarction (STEMI): QUALIFIERS: Involved coronary artery: unspecified coronary artery Qualified Code(s): I21.3 - ST elevation (STEMI) myocardial infarction of unspecified site PLAN: Treated with drug-eluting stent to SVG to OM1. Patient has some residual CAD that is best treated medically at this time. Continue current medications. As patient's blood pressure is on the low side, we will DC his Norvasc. Likely DC in a.m. Charges/Coding Visit Charges Inpatient E&M: 50432 Subs Hosp L1
[2023-12-18] MEDS: MELATONIN 3 MG TABLET PO (21:45)
[2023-12-18] MEDS: Atorvastatin Calcium 80 MG Tablet PO (22:04)
[2023-12-18] MEDS: LORazepam 1 MG Tablet PO (22:04)
[2023-12-19 02:28] VITALS: BMI 31.8
[2023-12-19 03:44] VITALS: BP 144/88; PULSE 64; RESP 16; TEMP 36.7; O2SAT 96
[2023-12-19 07:20] VITALS: O2SAT 96
[2023-12-19 07:20] LABS: ALB/GLOB Ratio 1.1 RATIO (0.9-2.4); AST(SGOT) 25 U/L (15-37); Alanine Aminotransfer ALT/SGPT 32 U/L (16-61); Albumin, Serum 3.5 g/dL (3.2-5.0); Alkaline Phosphatase 114 U/L (45-117); Anion Gap 5 (5-15); BUN 14 mg/dL (7-18); Calcium,Total 9.2 mg/dL (8.5-10.1); Chloride 106 mmol/L (98-107); EST Glomerular Filtration Rate 81 mL/min (>60); Est Glom Filt Rate - Afr Amer 97 mL/min (>60); Estimated Creatinine Clearance 91.13 ml/min; Globulin 3.1 g/dL (2.2-4.2); Glucose 120 mg/dL (74-106); Potassium 3.8 mmol/L (3.5-5.1); Protein, Total 6.6 g/dL (6.4-8.2); Sodium Level 135 mmol/L (136-145)
[2023-12-19 07:53] VITALS: BP 134/83; PULSE 58; RESP 14; TEMP 36.6; O2SAT 97
--- NOTE | 2023-12-19 08:26 | DCINST_ITS ---
Discharge Instructions Diet Discharge Diet: 2000 mg Sodium Diet Activity Discharge Activity: Return to Normal Activity Weight Bearing Status: Weight bearing as tolerated Dressing / Incision Call your doctor if you observe: Fever of 101 or Higher, Coldness, Increased Pain, Numbness or Tingling, Change in Color, Inability to urinate, Inability to have a bowel movement, Shortness of breath, Dizziness, Fainting spells, Swelling in the ankles, Chest pain, Prolonged hiccupping, Increased palpitations (irregular heartbeat) and Calf discomfort Follow Up Care When: IN 2 WEEKS Test Results: Test results from this visit will be discussed in further detail at your follow- up appointment, if applicable. Discharge Plan Admission Admit Date/Time: 12/17/23 11:03 Primary Reason for Your Visit: stemi Attending Provider: Alvaro Hines Primary Care Provider: Eddy Disla Consulting Providers: Hannah Bowen; Brandon Hernandez Discharge Orders/Prescriptions Prescriptions: New losartan 50 mg Tablet 50 mg PO DAILY 30 Days Qty: 30 3RF atorvastatin 80 mg Tablet 80 mg PO QHS 30 Days Qty: 30 3RF carvedilol 6.25 mg Tablet 6.25 mg PO BID 30 Days Qty: 60 3RF Brilinta 90 mg Tablet 90 mg PO BID 30 Days Qty: 60 3RF Continued indapamide 2.5 mg tablet 2.5 mg PO DAILY amlodipine 5 mg tablet 5 mg PO BID furosemide 40 mg tablet 40 mg PO DAILY telmisartan [Micardis] 40 mg tablet 40 mg PO DAILY aspirin 81 mg capsule 81 mg PO DAILY 30 Days Qty: 30 3RF Referrals / Follow Up: Eddy Disla DO [Primary Care Provider] - Disposition Disposition (needs filled in before D/C Order can be placed): Home, Self Care
--- NOTE | 2023-12-19 08:26 | PCM.DC.SUM ---
Providers Date of Admission: 12/17/23 Date of Discharge: 12/19/23 Primary Care Physician: Dr. Eddy Disla, Consultations 12/17/23 12:03 Consult: Cardiology Routine Consulting Provider: Hannah Bowen Reason for Consult: STEMI EMERGENT Consult: Yes MD Notified: Yes Date Notified: 12/17/23 Time Notified: 11:07 Method of Notification: Verbal Method of Consult:: In-Person Reason For Visit: STEMI Diagnosis Discharge Diagnosis (1) Acute ST elevation myocardial infarction (STEMI): Status: Acute Code(s): I21.3 - ST elevation (STEMI) myocardial infarction of unspecified site Qualifiers: Involved coronary artery: unspecified coronary artery Qualified Code(s): I21.3 - ST elevation (STEMI) myocardial infarction of unspecified site Plan This 63-year-old gentleman admitted with chest pain associated with dyspnea and diaphoresis approximately 3 hours prior to ED arrival on 01-07. Pain was mainly substernal felt like pressure and tightness. Patient was diagnosed inferior wall STEMI and was taken to [facility]. 1. Inferior wall STEMI, history of CAD status post three-vessel CABG 2007: Patient had cardiac catheter shows EF 45 to 50% with mid inferior hypokinesis. JONAS to LAD patent, SVG to first OM distal 99%, SVG to RCA. [place] vessel distal to the bypass graft is occluded, anastomosis and filling with bridging collaterals. OM 2, small vessel with severe diffuse disease proximally with significant CAD. Subtotally of chronic totally occluded. Troponin 302. Patient on aspirin, Brilinta, losartan, Coreg and high intensity statins. 2D echo is ordered. Patient is followed by dance therapist. 2. Elevated total bilirubin, exact etiology unclear: Total bilirubin improved from 1.8-1.5. The rest of the liver chemistry are normal range. Patient might have Gilbert's syndrome. Will need repeat liver chemistry in 3 months with 3. Chronic conditions: HTN HLP: Cholesterol 228 while on 40 of atorvastatin, increase dose to 80 milligrams daily. Prescriptions given for all medications CAD s/p CABG as above. Patient had a three-vessel bypass at [facility]. VTE prophylaxis: SCDs Discharge medication reconciliation done. Discharge follow-up instructions completed. Discharge process discussed with the patient and all questions were answered to patient's satisfaction. Follow with PCP in 1 to 2 weeks. Prescription given for all medications. Total time spent, exact 35 minutes on discharge meds reconciliation, examination, coordination of care with nurses and ancillary staff, review of imaging and blood test and discussion with the patient on follow-up instructions. Medications at Discharge Home Medications amlodipine 5 mg tablet 5 mg PO BID Blood pressure 12/17/23 furosemide 40 mg tablet 40 mg PO DAILY Diuretic 12/17/23 indapamide 2.5 mg tablet 2.5 mg PO DAILY BP and Fluid 12/17/23 telmisartan 40 mg tablet (Micardis) 40 mg PO DAILY Blood pressure 12/17/23 aspirin 81 mg capsule 81 mg PO DAILY [facility] 30 days #30 caps 12/19/23 atorvastatin 80 mg tablet 80 mg PO QHS 30 days #30 tabs 12/19/23 carvedilol 6.25 mg tablet 6.25 mg PO BID 30 days #60 tabs 12/19/23 losartan 50 mg tablet 50 mg PO DAILY 30 days #30 tabs 12/19/23 ticagrelor 90 mg tablet (Brilinta) 90 mg PO BID 30 days #60 tabs 12/19/23 Physical Exam Narrative Seen and examined. Patient was admitted with STEMI. Currently does not have chest pain pressure or tightness. No shortness of breath. Patient is walking around the nursing station. History of CAD status post CABG from right lower extremity saphenous vein graft Physical exam General: Alert, Oriented x3, Cooperative HEENT: Atraumatic, PERRLA, EOMI, Normocephalic Oral: Oral mucosa moist. No Gingival or Mucosal Lesions/ Ulcerations Neck: Supple, No JVD, Negative Carotid Bruits Chest wall/Lungs: Air entry diminished in bilateral lung bases. No crepitation/rhonchi Cardiovascular: Regular rate, Regular Rhythm, Normal S1, Normal S2, No M/G/R Abdomen: Bowel Sounds Present, Soft, Non Tender, Non-Distended : No dysuria. No renal angle tenderness. No suprapubic tenderness. Extremities: Mild 1+ edema, Capillary Refill Less than 3 Seconds Skin: No rashes, No breakdown Musculoskeletal: No Tenderness to Palpation of Joints or Extremities Neurological: Cranial nerves II-XII grossly intact, DTR 2+/4. No acute focal neurological deficit. Psych/Mental Status: Normal Affect, Appropriate. Weight / BMI Weight Weight: 222 lb 3.615 oz Body Mass Index (BMI) 31.8 ABG / Lab / Microbiology Data 12/18/23 04:10 12/19/23 06:15 Laboratory: Laboratory Results - last 24 hr 12/19/23 06:15: Sodium 135 L, Potassium 3.8, Chloride 106, Carbon Dioxide 24.0, Anion Gap 5, BUN 14, Creatinine 1.00, Estim Creat Clear Calc 91.13, Est GFR (MDRD) Af Amer 97, Est GFR (MDRD) Non-Af 81, BUN/Creatinine Ratio 14.0, Glucose 120 H, Calcium 9.2, Total Bilirubin 1.50 H, AST 25, ALT 32, Alkaline Phosphatase 114, Total Protein 6.6, Albumin 3.5, Globulin 3.1, Albumin/Globulin Ratio 1.1 D/C Instructions Discharge Diet: Low fat / Low cholesterol and 2000 mg Sodium Diet Discharge Activity: Return to Normal Activity Weight Bearing Status: Weight bearing as tolerated Call your doctor if you observe: Fever of 101 or Higher, Coldness, Increased Pain, Numbness or Tingling, Change in Color, Inability to urinate, Inability to have a bowel movement, Shortness of breath, Dizziness, Fainting spells, Swelling in the ankles, Chest pain, Prolonged hiccupping, Increased palpitations (irregular heartbeat) and Calf discomfort When: IN 2 WEEKS Meaningful Use Info Meaningful Use Diagnoses (Choose all that apply): AMI AMI/Post PCI/Angioplasty Aspirin given w/in 24hrs of arrival?: Yes ASA at discharge?: Yes Antiplatelet Therapy at Discharge:: Yes Statins at discharge?: Yes Ethan/ARB at discharge?: Yes Beta Cam at discharge?: Yes Done w/ Acute [place] measure.: Yes Documented LVEF (%): 45 Discharge Plan Admission Admit Date/Time: 12/17/23 11:03 Primary Reason for Your Visit: stemi Attending Provider: Alvaro Hines Primary Care Provider: Eddy Disla Consulting Providers: Hannah Bowen; Brandon Hernandez Discharge Orders/Prescriptions Prescriptions: New losartan 50 mg Tablet 50 mg PO DAILY 30 Days Qty: 30 3RF atorvastatin 80 mg Tablet 80 mg PO QHS 30 Days Qty: 30 3RF carvedilol 6.25 mg Tablet 6.25 mg PO BID 30 Days Qty: 60 3RF Brilinta 90 mg Tablet 90 mg PO BID 30 Days Qty: 60 3RF Continued indapamide 2.5 mg tablet 2.5 mg PO DAILY amlodipine 5 mg tablet 5 mg PO BID furosemide 40 mg tablet 40 mg PO DAILY telmisartan [Micardis] 40 mg tablet 40 mg PO DAILY aspirin 81 mg capsule 81 mg PO DAILY 30 Days Qty: 30 3RF Referrals / Follow Up: Eddy Disla DO [Primary Care Provider] - Within 2 Weeks Rex Garcia MD [Med Staff - Active Staff] - Within 1 Month Disposition Disposition (needs filled in before D/C Order can be placed): Home, Self Care Charges/Coding Visit Charges Inpatient E&M: 74187 Disch Hosp >30min
[2023-12-19] MEDS: Aspirin 81 MG TAB.CHEW PO (09:14)
[2023-12-19] MEDS: Carvedilol 6.25 MG Tablet PO (09:15)
[2023-12-19] MEDS: Furosemide 40 MG Tablet PO (09:15)
[2023-12-19] MEDS: TICAGRELOR 90 MG TABLET PO (09:15)
[2023-12-19] MEDS: Losartan Potassium 50 MG Tablet PO (09:16)
--- NOTE | 2023-12-19 10:00 | EKG12_ITS ---
Test Reason : AM EKG Blood Pressure : / mmHG Vent. Rate : 063 BPM Atrial Rate : 063 BPM P-R Int : 220 ms QRS Dur : 100 ms QT Int : 450 ms P-R-T Axes : 073 -51 138 degrees QTc Int : 460 ms Sinus rhythm with 1st degree A-V block Left axis deviation Low voltage QRS Inferior-posterior infarct , age undetermined ST & T wave abnormality, consider lateral ischemia Abnormal ECG When compared with ECG of 18-DEC-2023 05:27, MANUAL COMPARISON REQUIRED, DATA IS UNCONFIRMED Confirmed by Kma Perera ([id number]), school photograph editor DEBBIE EISENBERG ([id number]) on 12/20/2023 7:48:28 AM Referred By: Hannah Bowen Confirmed By:Kam Perera
--- NOTE | 2023-12-19 11:10 | CASEMGMT ---
RN CM Face to Face with patient for initial transition planning/care coordination assessment. RN CM introduced self and role at [facility]. Patient lying in bed, alert and oriented, at bedside. Patient willing to participate in assessment and is able to answer all questions appropriately. Care providers, pharmacy, and demographics verified. PCP: Naif Specialists: none Preferred Pharmacy: [facility], [facility] Retail at discharge Insurance: [facility] [place] Pres[place] Benefit: none, [facility] Living Will/HPOA: none LNOK: Living Arrangements: Patient lives with in a 2 story home with bed and bath on first floor. Patient states he is independent Transportation: driving service DME/HHC: Patient denies DME in the home. Patient wishes to discharge home, denies need for home health at this time. Patient states he has no further needs or concerns at this time. CM to follow for discharge planning needs that may arise. Disposition Plan: Patient to discharge home with family support and follow-up plans in place. Ghislaine MEJIA, RN, CM
--- NOTE | 2023-12-19 13:47 | CASEMGMT ---
KELLI ALFARO received call from [facility], system is down for Brilinta Savings card and no ETA when it will be back up and cost is over $500. Hospitalist notified and will change to Plavix and will send prescription to [facility] rx. KELLI ALFARO updated nurse as well.
[2023-12-19 14:00] VITALS: BP 140/90; PULSE 67; RESP 14; TEMP 36.7; O2SAT 98
== END 2023-12-19 14:24 | disposition home or self-care (01) | DRG 322 ==
LOC: ED 09:49 → ICU 11:30 → PCU 12-18 14:28
PROVIDERS: Emergency Provider Emergency Medicine; PCP Family Medicine; Referring Provider Specialist; Visit Provider Internal Medicine
DX: I21.19 ST elevation (STEMI) myocardial infarction involving other coronary artery of inferior wall (principal); E78.00 Pure hypercholesterolemia, unspecified; I10 Essential (primary) hypertension; I25.10 Atherosclerotic heart disease of native coronary artery without angina pectoris; E80.4 Gilbert syndrome; Z79.82 Long term (current) use of aspirin; Z79.02 Long term (current) use of antithrombotics/antiplatelets; Z79.899 Other long term (current) drug therapy; Z95.1 Presence of aortocoronary bypass graft; Z95.5 Presence of coronary angioplasty implant and graft
CPT/HCPCS: 36415; 71045; 80048; 80053; 80061; 82962; 84484; 85025; 85610; 85730; 92941; 93005; 93306; 93459; 94762; 97802; 99153; 99282; J7030; Q9957; A4216; C1725; C1760; C1769; C1874; C1887; C1894; C8929; C9606; Q9967

== ENCOUNTER 2024-03-29 19:12 | Observation (INO) | payer OTHER, SELFPAY ==
[2024-03-29 19:13] VITALS: BP 123/76; PULSE 60; RESP 17; TEMP 36.3; O2SAT 92; O2SAT 95; BMI 33.5
--- NOTE | 2024-03-29 19:28 | EKG12_ITS ---
Test Reason : DYSRHYTHMIA Blood Pressure : / mmHG Vent. Rate : 062 BPM Atrial Rate : 062 BPM P-R Int : 212 ms QRS Dur : 094 ms QT Int : 428 ms P-R-T Axes : 072 -26 106 degrees QTc Int : 434 ms Sinus rhythm with 1st degree A-V block Low voltage QRS Incomplete right bundle branch block Inferior infarct (cited on or before 24-NOV-2013) T wave abnormality, consider lateral ischemia Abnormal ECG Confirmed by FAVIO BARAJAS, OSCAR ([id number]), society editor DEBBIE EISENBERG ([id number]) on 04/02/2024 11:29:55 AM Referred By: JOSE R Confirmed By:OSCAR STAHL MD
--- NOTE | 2024-03-29 19:29 | EDS_ITS ---
HPI History of Present Illness Chief Complaint: Syncope Informant: patient, spouse/S.O. and family Onset/Context/Timing Onset: Today Context: Sudden Onset Timing: Intermittent Current Severity: Gone Maximum Severity: Moderate Narrative Narrative: 63-year-old male history of prior MS, CAD, stent and prior bypass surgery about 6 years ago. On Plavix. His normal state of health. Tonight he ate dinner. He was sitting on the porch swing with his she said he was feeling lightheaded and then had a syncopal episode came to and passed out again. No headache or chest pain. No shortness of breath. No recent illness. No vomiting no diarrhea no fever or melena. He has not had any recent chest pain or headache. He is feeling better currently. He has not passed out before. He has no history of abnormal heart rhythm. Prior similar symptoms: No Recent Illness/Hospitalization: No PFSH PFS Medical History Atherosclerotic heart disease of [place] coronary artery without angina pectoris Sleep apnea Myocardial infarct Chest pain CAD (coronary artery disease) Hyperlipidemia Hypertension Home Medications ?Medication ?Instructions ?Recorded ?Last Taken ?Type furosemide 40 mg tablet 40 mg PO DAILY Diuretic 12/17/23 Unknown History aspirin 81 mg capsule 81 mg PO DAILY [facility] 30 12/19/23 Unknown Rx days #30 caps carvedilol 6.25 mg tablet 6.25 mg PO BID 30 days #60 tabs 12/19/23 Unknown Rx clopidogrel 75 mg tablet (Plavix) 75 mg PO DAILY 1 month #30 tabs 12/19/23 Unknown Rx losartan 50 mg tablet 50 mg PO DAILY 30 days #30 tabs 12/19/23 Unknown Rx amlodipine 5 mg tablet 5 mg PO BID 03/29/24 Unknown History trazodone 50 mg tablet 50 mg PO QHS PRN sleep 03/29/24 Unknown History Allergy/AdvReac Type Severity Reaction Status Date / Time atorvastatin AdvReac Intermediate myalgias Verified 03/29/24 19:14 lisinopril AdvReac Other Verified 03/29/24 19:14 oxycodone AdvReac Other Verified 03/29/24 19:14 Family History Father CAD (coronary artery disease) Surgical History Stented coronary artery (12/17/23) History of cardiac catheterization History of knee surgery H/O hernia repair History of open heart surgery History of heart artery stent Social History Smoking Status: Never smoker alcohol intake: current alcohol intake frequency: 0-2 drinks per day Alcohol type: wine substance use type: does not use caffeine: Yes Type: coffee Number of servings: 1 ROS ROS ED ROS Narrative Denies any recent illness. Review of Systems ROS Unobtainable: Denies due to encephalopathy Constitutional Constitutional ED: Denies chills or fever(s) Eyes Eyes: Denies blurry vision ENT ENT ED: Denies ear pain Cardiovascular Cardiovascular: Denies chest pain or palpitations Respiratory/Chest Respiratory/Chest: Denies cough or dyspnea Gastrointestinal Gastrointestinal: Denies abdominal pain, constipation, diarrhea, melena, nausea or vomiting Genitourinary Genitourinary ED: Denies dysuria or hematuria Musculoskeletal Musculoskeletal: Denies arthralgias, back pain or myalgias Integumentary Denies abscess, Abrasions or rash Neurologic Neurologic: Denies headache(s) Psychiatric Psychiatric: Denies anxiety or depression Endocrine Endocrinology: Denies cold intolerance Hematologic/Lymphatic Hematologic/Lymphatic: Reports none Allergic/Immunologic Allergic/Immunologic ED: Denies mouth swelling, tongue swelling or urticaria EXAM Physical Exam Narrative Exam Narrative: 61-year-old male no acute distress sitting upright in bed. Vital signs stable afebrile. Pulse ox 92% on room air no signs hypoxia. H EENT exam unremarkable. Atraumatic. Moist extremities. No facial droop. Normal speech. No trauma. Neck nontender. No lymphadenopathy. Lungs clear to auscultation bilaterally. Heart regular rhythm rate about 60 no murmur. Chest wall and ribs nontender. Abdomen soft nontender. Moving all 4 extremities. 5-5 newspaper or periodical editor strength. Dorsi plantarflexion intact. Calves are nontender without edema or cords. Neurologically is awake and alert. Answer questions following commands. No focal motor deficits. NIH is 0. Benign exam. Const Vital Signs: 03/29/24 19:13 03/29/24 19:13 03/29/24 19:33 Temperature 97.4 F L Temperature Source Temporal Pulse Rate 60 Respiratory Rate 17 Respiratory Effort Normal Non-Labored Respiratory Pattern Normal Blood Pressure 123/76 H Blood Pressure Mean 91 Pulse Ox 92 Oxygen Delivery Method Room Air Nasal Cannula Oxygen Flow Rate (L/min) 2 Positive well nourished and well developed; Negative for cachectic, contractures or unkempt General Appearance ED: well developed and NAD; Negative for unkempt, cachectic, contractures, cyanotic, diaphoretic or pallor Nutritional Appearance: Negative for cachectic HEENT Reports moist mucous membranes; Denies dry mucous membranes Negative for trauma or tenderness Mouth ED: No dry mucous membranes Mouth: No dry mucous membranes Eyes PERRL and EOMs intact bilaterally General Eye ED: Negative for pale conjunctiva or scleral icterus Neck no lymphadenopathy, supple and no JVD General: Negative for tenderness Lymph Lymphatic: Negative for other Chest Wall inspection of chest normal and palpation of chest normal Chest: Negative for other Resp normal respiratory effort and clear to auscultation bilaterally Effort and Inspection: Negative for retractions, pain with movement or other Auscultation: Negative for rales, rhonchi, wheezes or diminished lung sounds Cardio regular rate, regular rhythm, S1 normal heart sound, S2 normal heart sound and no murmurs Palpation: Negative for palpable S3 or palpable S4 Rate: Negative for bradycardia or tachycardic Rhythm: Negative for abnormal rhythm GI normal to inspection, nondistended, normoactive bowel sounds, non-tender, non- distended and no masses Inspection: Negative for abdominal distention Auscultation: normoactive bowel sounds Palpation: soft; Negative for tender or guarding Back/Spine no CVA tenderness General Back: Negative for CVA tenderness Cervical Spine: Negative for cervical spine tenderness Thoracic Spine / Upper Back: Negative for thoracic spinal tenderness or parasp inal muscle tenderness Lumbar Spine / Lower Back: Negative for lumbar spinal tenderness Extremity normal to inspection General Extremety ED: Negative for edema or tenderness General Extremity: Negative for edema Neuro oriented x3 and CN's II-XII intact bilaterally Sensorium / Orientation: alert; Negative for orientation impaired, lethargic or stuporous Motor Exam: strength 5/5 throughout; Negative for general weakness or strength abnormal Psych mental status grossly normal Appearance: Negative for unkempt Attitude: No agitated Mood & Affect: Negative for depressed, anxious or tearful Skin no rashes or lesions noted and no wounds General Skin Exam: elasticity normal; Negative for jaundice or pallor Lesions: No lesion noted Rashes: No rashes noted Trauma: Negative for abrasion Wounds: Negative for wounds noted MDM MDM MDM Narrative Medical decision making narrative: 63-year-old male had a syncopal episode x 2 tonight. Has a known cardiac history. Differential would include dysrhythmia versus many other causes. Undergo cardiac workup. I have already discussed with he and his about potentially being admitted overnight for observation and cardiac monitoring. Or we discussed that after he had his test results back. Repeat exam patient doing well at 8:15 PM. Exam unchanged. Currently has no complaints. He and his family and I went over his test results. We discussed causes of syncope. Given his cardiac history prior CABG, MS and stent I do th ink he should be observed and monitored overnight for dysrhythmia. They are comfortable with the plan. Have the hospitalist on page. History & Record Review Discussion w/independent historian: Patient and Family Additional record(s) reviewed:: Prior inpatient record, Prior outpatient record, Prior ED visit and Prior labs Lab Data Attestation: I reviewed the patient's lab results. Lab results narrative: CBC shows a white count 8. H&H 13.1 and 38. Platelets 223. BMP shows a gap of 4. BUN 26 creatinine 1.5 which is slightly higher than his baseline. Glucose 139. Troponin normal at 9. Labs: Laboratory Results - last 24 hr 03/29/24 19:37 WBC 8.9 RBC 4.07 L Hgb 13.1 Hct 38.7 L MCV 95.1 H MCH 32.2 H MCHC 33.9 RDW Std Deviation 42.6 RDW Coeff of Sea 12.3 Plt Count 223 MPV 8.8 Immature Gran % (Auto) 1.000 H Neut % (Auto) 76.6 H Lymph % (Auto) 12.0 L [place]ill % (Auto) 7.7 Eos % (Auto) 2.1 Baso % (Auto) 0.6 Absolute Neuts (auto) 6.8 Absolute Lymphs (auto) 1.06 Nucleated RBC % 0 Sodium 136 Potassium 4.2 Chloride 103 Carbon Dioxide 29.0 Anion Gap 4 L BUN 26 H Creatinine 1.50 H Estim Creat Clear Calc 62.23 Est GFR (MDRD) Af Amer 61 Est GFR (MDRD) Non-Af 50 L BUN/Creatinine Ratio 17.3 Glucose 139 H Calcium 8.8 Troponin I High Sens 9 Radiography Chest X-Ray - ED: 1 View, Read by ED Physician, Heart, Lungs, Mediastinum, Bony Structures, No Acute Disease and Chronic Changes Diagnostic Testing: Clinical Impression(s) from Imaging Studies Chest X-Ray 03/29/24 19:45 IMPRESSION: No radiographic evidence of acute cardiopulmonary disease. Electronically Signed: Rasta Rosas MD at 20:05 EDT , Chest x-ray, portable, single view interpreted by myself shows of prior sternotomy. Metal wires. Normal cardiac silhouette. Normal lung mallory. Chronic changes. No acute process. Rhythm Strip Rhythm Strip: Sinus Rhythm Rate: 62 Ectopy: None EKG Initial EKG: Attestation: I personally reviewed and interpreted this EKG as follows: Interpretation: Sinus Rhythm and No Acute Injury Pattern Comments: Normal sinus rhythm rate is 62. First-degree AV block with IL interval 212. No ST elevation or depression. Inverted T waves in lead I and aVL. Discharge Plan Dx/Rx/DC Orders Clinical Impression: Syncope, History of MS (myocardial infarction), Hx of heart artery stent, Hx of CABG Disposition Disposition: Acute Care [facility]
--- NOTE | 2024-03-29 19:45 | RAD_ITS ---
INDICATION: chest pain EXAMINATION/TECHNIQUE: X-RAY - XR Chest 1 View COMPARISON: December 17, 2023. FINDINGS: LINES/DEVICES: None. LUNGS: No consolidation, edema or effusion. No pneumothorax. MEDIASTINUM AND CARDIOVASCULAR STRUCTURES: Cardiac silhouette not enlarged. BONES AND SOFT TISSUES: Sternotomy wires are midline and intact. RAD/Chest 1 View (Portable) IMPRESSION: No radiographic evidence of acute cardiopulmonary disease. Electronically Signed: Rasta Rosas MD at 20:05 EDT ,
[2024-03-29 19:52] LABS: Absolute Lymphocyte Count 1.06 X10^3/uL (0.83-4.51); Absolute Neutrophil Count 6.8 X10^3/uL (2.0-7.7); Basophil# 0.05 X10^3/uL; Basophil% 0.6 % (0-1); Eosinophil# 0.19 X10^3/uL; Eosinophils% 2.1 % (0-5); Hematocrit 38.7 % (40-54); Hemoglobin 13.1 g/dL (13.0-16.5); Lymphocyte # 1.06 X10^3/ul (0.83-4.51); Mean Corp Hgb Conc 33.9 g/dL (32-36); Mean Corpuscular Hgb 32.2 pg (27.0-32.0); Mean Corpuscular Volume 95.1 fL (80-94); Mean Platelet Vol. 8.8 fl (6.2-12.0); Monocyte# 0.68 X10^3/uL; Monocyte% 7.7 % (0-10); NRBC Flagged by Analyzer 0 % (0-5); Neutrophil # 6.78 X10^3/uL (2.7-7.7); Neutrophil % 76.6 % (47-70); Platelet Count 223 K/mm3 (150-450); RBC Distribution Width CV 12.3 % (11.6-14.6); RBC Distribution Width SD 42.6 fl (35.1-43.9); Red Blood Count 4.07 M/mm3 (4.6-6.2); White Blood Count 8.9 K/mm3 (4.4-11.0)
[2024-03-29 20:10] LABS: Anion Gap 4 (5-15); BUN 26 mg/dL (7-18); BUN/Creat Ratio 17.3 RATIO (10-20); Calcium,Total 8.8 mg/dL (8.5-10.1); Chloride 103 mmol/L (98-107); EST Glomerular Filtration Rate 50 mL/min (>60); Est Glom Filt Rate - Afr Amer 61 mL/min (>60); Estimated Creatinine Clearance 62.23 ml/min; Glucose 139 mg/dL (74-106); Potassium 4.2 mmol/L (3.5-5.1); Sodium Level 136 mmol/L (136-145); Troponin-I HS 9 pg/mL (3.0-78.0)
[2024-03-29 20:13] VITALS: BP 131/78; PULSE 59; RESP 17; O2SAT 98
[2024-03-29 20:17] VITALS: BP 131/73; PULSE 60; RESP 18; TEMP 36.4; O2SAT 98
--- NOTE | 2024-03-29 20:19 | HP.PCM.HOS_ITS ---
HPI - General General Date of Admission: 03/29/24 Date of Service: 03/29/24 Chief Complaint: Syncopal episode HPI Narrative NHI BAUTISTA, is a 63 M who presented to [facility] ED on 03/29/2024 after a syncopal episode at home. Saw patient at bedside in the ED, and son present. Patient is [place], lives at home with and children. Patient has recent history of STEMI in early December 2023. Notably had prior history of CABG in 2018 at [place] (JONAS to LAD, SVG to OM1 and SVG to RCA). Presented in December with chest pain and was found to have an inferior STEMI. Was treated with drug-eluting stent x 1 and SVG to OM1 graft. Also noted to have some residual disease cardiology recommended medical management for this. Echo at that time showed an EF of 40 to 45% with posterior and lateral hypokinesis, along with severe biatrial dilation. Patient last followed up with cardiology in the office on 01/29. Was noted to have high home blood pressures so amlodipine 5 mg daily was added at that time. Plan was for 3-month cardiology follow-up with next appointment in mid to late April. On my encounter, patient was sitting up comfortably in bed, conversing normally, in no acute distress. Patient states that earlier this evening he had dinner with his family, then went outside to sit on the swing. He remembers developing blurry vision at that time and that was the last thing he remembered. He does not remember feeling dizzy or lightheaded. Denied feeling nauseous or sweaty. notes that he was sitting on the swing and just that he felt tired with blurry vision and the next thing she knew he had passed out. She states he was out for about 2 minutes. They lowered him off the swing and onto the ground. She states that when he regained consciousness he had an episode of vomiting. They noted that when the squad got there, his blood pressure was in the 90s over 60s. Patient states he has been taking his blood pressure medications as prescribed. However, he thinks he may have accidentally taken 2 doses of his Lasix this morning because he was not sure if he took the first dose. He denies feeling dry or dehydrated earlier today or at this time. No other acute concerns at this time. Vitals in ED notable for borderline sinus bradycardia with heart rate around 60, normotensive, otherwise unremarkable. Labs notable for BUN 26, creatinine 1.50 (baseline around 1.0), otherwise unremarkable. Troponin negative. EKG showed normal sinus rhythm, first-degree AV block with [place] interval 212, no acute ST changes. Chest x-ray was unremarkable. [facility] Medical History Atherosclerotic heart disease of [place] coronary artery without angina pectoris Sleep apnea Myocardial infarct Chest pain CAD (coronary artery disease) Hyperlipidemia Hypertension Home Medications ?Medication ?Instructions ?Recorded ?Last Taken ?Type furosemide 40 mg tablet 40 mg PO DAILY Diuretic 12/17/23 Unknown History aspirin 81 mg capsule 81 mg PO DAILY Heart Health 30 12/19/23 Unknown Rx days #30 caps carvedilol 6.25 mg tablet 6.25 mg PO BID 30 days #60 tabs 12/19/23 Unknown Rx clopidogrel 75 mg tablet (Plavix) 75 mg PO DAILY 1 month #30 tabs 12/19/23 Unknown Rx losartan 50 mg tablet 50 mg PO DAILY 30 days #30 tabs 12/19/23 Unknown Rx amlodipine 5 mg tablet 5 mg PO BID 03/29/24 Unknown History trazodone 50 mg tablet 50 mg PO QHS PRN sleep 03/29/24 Unknown History Allergy/AdvReac Type Severity Reaction Status Date / Time atorvastatin AdvReac Intermediate myalgias Verified 03/29/24 19:14 lisinopril AdvReac Other Verified 03/29/24 19:14 oxycodone AdvReac Other Verified 03/29/24 19:14 Family History Father CAD (coronary artery disease) Surgical History Stented coronary artery (12/17/23) History of cardiac catheterization History of knee surgery H/O hernia repair History of open heart surgery History of heart artery stent Social History Smoking Status: Never smoker alcohol intake: current alcohol intake frequency: 0-2 drinks per day Alcohol type: wine substance use type: does not use caffeine: Yes Type: coffee Number of servings: 1 ROS Constitutional Constitutional: Denies chills, fatigue, fever(s) or weakness Eyes Eyes: Denies change in vision Cardiovascular Cardiovascular: Denies chest pain, dyspnea on exertion, edema, lightheadedness, orthopnea, palpitations or rapid heart rate Respiratory/Chest Respiratory/Chest: Denies cough or shortness of breath at rest Gastrointestinal Gastrointestinal: Denies abdominal pain, constipation, diarrhea, nausea or vomiting Genitourinary Genitourinary: Denies dysuria Musculoskeletal Musculoskeletal: Denies arthralgias or myalgias Neurologic Neurologic: Denies dizziness, focal weakness or headache(s) Vital Signs Vital Signs Vital Signs: 03/29/24 19:13 03/29/24 19:13 03/29/24 19:33 Temperature 97.4 F L Temperature Source Temporal Pulse Rate 60 Respiratory Rate 17 Respiratory Effort Normal Non-Labored Respiratory Pattern Normal Blood Pressure 123/76 H Blood Pressure Mean 91 Pulse Ox 92 Oxygen Delivery Method Room Air Nasal Cannula Oxygen Flow Rate (L/min) 2 Weight Weight: 105.9 kg Body Mass Index (BMI) 33.5 Physical Exam Const alert, oriented x3 and no apparent distress Constitutional Narrative: Pleasant middle-age male, obese, sitting up comfortably in bed, conversing normally, no acute distress. General Appearance: cooperative and comfortable HEENT normocephalic, head/scalp atraumatic, hearing grossly normal bilaterally and nasal mucous membranes and turbinates normal Eyes PERRL, EOMs intact bilaterally and conjunctivae normal Neck full ROM Chest inspection of chest normal Resp normal respiratory effort, normal air movement, no use of accessory muscles and clear to auscultation bilaterally Cardio regular rate, regular rhythm, no murmurs and peripheral pulses 2+ throughout GI normal to inspection, nondistended, normoactive bowel sounds, soft to palpation, non-tender and non-distended Back/Spine normal ROM Extremity normal to inspection, full ROM and no pedal edema Extremity Narrative: Mild chronic edema in right lower leg (had vessels taken from that leg for CABG). Skin no rashes or lesions noted Neuro moves all extremities and no focal motor deficits Speech: speech normal Psych mental status grossly normal Results Lab / Micro Data 03/29/24 19:37 03/29/24 19:37 Labs: Laboratory Results - last 24 hr 03/29/24 19:37: WBC 8.9, RBC 4.07 L, Hgb 13.1, Hct 38.7 L, MCV 95.1 H, MCH 32.2 H, MCHC 33.9, RDW Std Deviation 42.6, RDW Coeff of Sea 12.3, Plt Count 223, MPV 8.8, Immature Gran % (Auto) 1.000 H, Neut % (Auto) 76.6 H, Lymph % (Auto) 12.0 L , [place] % (Auto) 7.7, Eos % (Auto) 2.1, Baso % (Auto) 0.6, Absolute Neuts (auto) 6.8, Absolute Lymphs (auto) 1.06, Nucleated RBC % 0, Sodium 136, Potassium 4.2, Chloride 103, Carbon Dioxide 29.0, Anion Gap 4 L, BUN 26 H, Creatinine 1.50 H, Estim Creat Clear Calc 62.23, Est GFR (MDRD) Af Amer 61, Est GFR (MDRD) Non-Af 50 L, BUN/Creatinine Ratio 17.3, Glucose 139 H, Calcium 8.8, Troponin I High Sens 9 Rhythm Strip Rhythm Strip: Sinus Rhythm Rate: 62 Ectopy: None Imaging Radiology Impression Chest X-Ray 03/29/24 19:45 IMPRESSION: No radiographic evidence of acute cardiopulmonary disease. Electronically Signed: Rasta Rosas MD at 20:05 EDT Reading Location ID and State: [facility] / [place] Tel , Service support , Assessment & Plan Assessment/Plan (1) Syncope: (2) KOJO (acute kidney injury): PLAN: Plan Patient is a 63-year-old male who presented [facility] ED on 03/29/2024 after an episode of syncope at home. 1. Syncopal episode ? Admit under observation status to PCU. Seems that patient may have had a vasovagal syncope event given blurry vision prior to passing out, mild KOJO as noted above and that he possibly took extra dose of Lasix that morning. Orthostatic vitals ordered. Holding home blood pressure medications for now as noted below. Cannot rule out that episode was secondary to an arrhythmia given new onset HFrEF after recent STEMI. Continue cardiac monitoring and if no arrhythmias are noted, may need heart monitor on discharge. Can consider cardiology consult as needed. 2. Mild KOJO ? Creatinine 1.50 on admit, baseline around 1.0. Suspect prerenal KOJO secondary to mild dehydration from slight overdiuresis. Will give 750 cc of LR to the patient overnight and recheck BMP in the morning. Monitor urine output. 3. Recent history of STEMI, history of CAD with CABG (2018) and stenting, HFrEF, hypertension ? Follows with [facility]. Home medications of aspirin, Plavix, amlodipine 5 mg daily, carvedilol 6.25 mg twice daily, losartan 50 mg daily and Lasix 40 mg daily. Most recent echo post STEMI in early December showed EF 40 to 45%. Continue home aspirin and Plavix. Holding home BP meds for now given patient appeared slightly volume down on admit with mild KOJO as noted above and was normotensive in the ED. Will need to determine home medication regimen prior to discharge. 4. Obesity ? BMI 32 on admit. Encouraged lifestyle modifications. Complicates hospital course, care and prognosis. DVT prophylaxis: Lovenox CODE STATUS: Full code, verified Expected disposition: Home, 1 to 2 days Total clinical time spent by myself addressing the patient's medical issues, reviewing all the data, and collaborating with patient's care team: 55 minutes. Charges/Coding Visit Charges Inpatient E&M: 74458 Init Hosp L2
[2024-03-29 21:00] VITALS: BP 123/87; PULSE 61; RESP 16; TEMP 36.7; O2SAT 97
[2024-03-29 21:29] VITALS: BMI 32.8
[2024-03-29 22:03] VITALS: BP 126/81; BP 128/69; BP 131/89; PULSE 63; PULSE 67; PULSE 73
[2024-03-29] MEDS: Lactated Ringers 1,000 ML 150 ML IV (22:12)
[2024-03-29 23:51] VITALS: O2SAT 97
[2024-03-30 03:00] VITALS: BP 131/79; PULSE 61; RESP 16; TEMP 36.6; O2SAT 94
[2024-03-30] MEDS: Acetaminophen 325 MG Tablet 650 MG PO (03:34)
[2024-03-30 05:56] LABS: Hematocrit 38.3 % (40-54); Hemoglobin 12.9 g/dL (13.0-16.5); Mean Corp Hgb Conc 33.7 g/dL (32-36); Mean Corpuscular Hgb 32.1 pg (27.0-32.0); Mean Corpuscular Volume 95.3 fL (80-94); Mean Platelet Vol. 8.9 fl (6.2-12.0); Platelet Count 208 K/mm3 (150-450); RBC Distribution Width CV 12.3 % (11.6-14.6); RBC Distribution Width SD 42.8 fl (35.1-43.9); Red Blood Count 4.02 M/mm3 (4.6-6.2); White Blood Count 7.7 K/mm3 (4.4-11.0)
[2024-03-30 06:47] LABS: Anion Gap 7 (5-15); BUN 23 mg/dL (7-18); BUN/Creat Ratio 20.5 RATIO (10-20); Calcium,Total 8.6 mg/dL (8.5-10.1); Chloride 105 mmol/L (98-107); Creatinine, Serum 1.12 mg/dL (0.70-1.30); EST Glomerular Filtration Rate 71 mL/min (>60); Est Glom Filt Rate - Afr Amer 85 mL/min (>60); Estimated Creatinine Clearance 82.49 ml/min; Glucose 121 mg/dL (74-106); Potassium 3.8 mmol/L (3.5-5.1); Sodium Level 137 mmol/L (136-145)
--- NOTE | 2024-03-30 07:45 | PCM.PN.HOSP ---
Reason for Visit Reason for Visit: Diagnoses Acute kidney failure, unspecified (03/29/24) Syncope and collapse (03/29/24) Subjective Subjective Feels well. States that yesterday he was doing a lot of painting but was drinking several Gatorade's to keep hydrated. Stated it was hotter than it had been over the preceding few days. Objective Data Objective Data Vital Signs: Vital Signs Temp Pulse Resp BP Pulse Ox O2 Del Method O2 Flow Rate 36.6 C 61 16 131/79 H 94 Room Air 2 03/30/24 03:00 03/30/24 03:00 03/30/24 03:00 03/30/24 03:00 03/30/24 03:00 03/30/24 03:00 03/29/24 20:13 Oxygen Flow Rate (L/min) 2 Oxygen Delivery Method Room Air Weight: 103.7 kg Body Mass Index (BMI) 32.8 Intake & Output: Intake and Output for Last 24 Hours 03/28/24 03/29/24 03/30/24 23:59 23:59 23:59 Intake Total 500 / 500 1000 / 1000 Balance 500 / 500 1000 / 1000 Lab / Micro Data 03/30/24 05:10 03/30/24 05:10 Labs: Laboratory Results - last 24 hr 03/29/24 19:37: WBC 8.9, RBC 4.07 L, Hgb 13.1, Hct 38.7 L, MCV 95.1 H, MCH 32.2 H, MCHC 33.9, RDW Std Deviation 42.6, RDW Coeff of Sea 12.3, Plt Count 223, MPV 8.8, Immature Gran % (Auto) 1.000 H, Neut % (Auto) 76.6 H, Lymph % (Auto) 12.0 L, [place] % (Auto) 7.7, Eos % (Auto) 2.1, Baso % (Auto) 0.6, Absolute Neuts (auto) 6.8, Absolute Lymphs (auto) 1.06, Nucleated RBC % 0, Sodium 136, Potassium 4.2, Chloride 103, Carbon Dioxide 29.0, Anion Gap 4 L, BUN 26 H, Creatinine 1.50 H, Estim Creat Clear Calc 62.23, Est GFR (MDRD) Af Amer 61, Est GFR (MDRD) Non-Af 50 L, BUN/Creatinine Ratio 17.3, Glucose 139 H, Calcium 8.8, Troponin I High Sens 9 03/30/24 05:10: WBC 7.7, RBC 4.02 L, Hgb 12.9 L, Hct 38.3 L, MCV 95.3 H, MCH 32.1 H, MCHC 33.7, RDW Std Deviation 42.8, RDW Coeff of Sea 12.3, Plt Count 208, MPV 8.9, Sodium 137, Potassium 3.8, Chloride 105, Carbon Dioxide 25.0, Anion Gap 7, BUN 23 H, Creatinine 1.12, Estim Creat Clear Calc 82.49, Est GFR (MDRD) Af Amer 85, Est GFR (MDRD) Non-Af 71, BUN/Creatinine Ratio 20.5 H, Glucose 121 H, Calcium 8.6 Radiography Diagnostic Testing: Radiology Impression Chest X-Ray 03/29/24 19:45 IMPRESSION: No radiographic evidence of acute cardiopulmonary disease. Electronically Signed: Rasta Rosas MD at 20:05 EDT Reading Location ID and State: [facility] / [place] Tel , Service support , Rhythm Strip Rhythm Strip: Sinus Rhythm Rate: 62 Ectopy: None Physical Exam Const alert and no apparent distress HEENT head/scalp atraumatic and moist oral mucous membranes Resp normal respiratory effort, no retractions, no use of accessory muscles and clear to auscultation bilaterally Cardio regular rate, regular rhythm, S1 normal heart sound and S2 normal heart sound GI normal to inspection, nondistended, normoactive bowel sounds and soft to palpation Extremity normal to inspection and full ROM Neuro Sensorium / Orientation: awake and alert Assessment & Plan Assessment/Plan (1) Syncope: (2) KOJO (acute kidney injury): PLAN: Plan Syncopal episode -Suspect vasovagal due to the fact that the patient was working outside painting and though he was drinking plenty of fluids per his description his creatinine was elevated. This may have been complicated by taking furosemide, which has been held and carvedilol which may have limited his heart rate. Looks like patient was started on a diuretic during his hospitalization back in December. With his acute kidney injury and syncope, would hold off on that for the time being and to use only as needed. -Orthostats negative KOJO -Admission creatinine was 1.5 with a baseline around 1. Did improve with IV fluids. Chronic conditions -CAD: Patient with a history of STEMI. -Chronic heart failure with reduced ejection fraction: EF of 4045%. Furosemide held given KOJO. -Obesity class I: Complicates care and recovery. CODE STATUS: Full code, verified Discharge home
[2024-03-30 07:54] VITALS: O2SAT 92
[2024-03-30 08:33] VITALS: BP 145/90; PULSE 57; RESP 12; TEMP 36.2; O2SAT 96
[2024-03-30] MEDS: Clopidogrel Bisulfate 75 MG Tablet PO (08:38)
[2024-03-30] MEDS: Aspirin 81 MG TAB.CHEW PO (08:38)
--- NOTE | 2024-03-30 09:57 | PCM.DC.SUM ---
Providers Date of Admission: 03/29/24 Primary Care Physician: Dr. Eddy Disla DO Reason For Visit: SYNCOPE WITH MILD KOJO Diagnosis Discharge Diagnosis (1) Syncope: Status: Acute Code(s): R55 - Syncope and collapse (2) KOJO (acute kidney injury): Status: Acute Code(s): N17.9 - Acute kidney failure, unspecified Plan Syncopal episode -Suspect vasovagal due to the fact that the patient was working outside painting and though he was drinking plenty of fluids per his description his creatinine was elevated. This may have been complicated by taking furosemide, which has been held and carvedilol which may have limited his heart rate. Looks like patient was started on a diuretic during his hospitalization back in December. With his acute kidney injury and syncope, would hold off on that for the time being and to use only as needed. -Orthostats negative KOJO -Admission creatinine was 1.5 with a baseline around 1. Did improve with IV fluids. Chronic conditions -CAD: Patient with a history of STEMI. -Chronic heart failure with reduced ejection fraction: EF of 4045%. Furosemide held given KOJO. -Obesity class I: Complicates care and recovery. CODE STATUS: Full code, verified Discharge home Medications at Discharge Home Medications aspirin 81 mg capsule 81 mg PO DAILY Heart Health 30 days #30 caps 12/19/23 carvedilol 6.25 mg tablet 6.25 mg PO BID 30 days #60 tabs 12/19/23 clopidogrel 75 mg tablet (Plavix) 75 mg PO DAILY 1 month #30 tabs 12/19/23 losartan 50 mg tablet 50 mg PO DAILY 30 days #30 tabs 12/19/23 amlodipine 5 mg tablet 5 mg PO BID 03/29/24 trazodone 50 mg tablet 50 mg PO QHS PRN sleep 03/29/24 furosemide 40 mg tablet 40 mg PO DAILY PRN For edema or weight gain of 2 pounds in 1 day or 3 #30 tabs 03/30/24 Hospital Course Operations None Procedures None Summary of Care Provided Minutes Spent on Discharge: 32 Hospital Course: Patient had a syncopal episode. Patient was sitting in a porch swing and felt his vision go blurry and then passed out. Patient presented to the hospital and was stable but his kidney function was worsened. Patient had been painting outside and had been Hod day so likely component of dehydration, though the patient was drinking several Gatorade's, using a diuretic as well as carvedilol. I am going to change the diuretic to as needed to prevent further events in the future. Patient's hospitalization was otherwise uncomplicated and patient will be discharged home in stable condition. Weight / BMI Weight Weight: 103.7 kg Body Mass Index (BMI) 32.8 ABG / Lab / Microbiology Data 03/30/24 05:10 03/30/24 05:10 Laboratory: Laboratory Results - last 24 hr 03/29/24 19:37: WBC 8.9, RBC 4.07 L, Hgb 13.1, Hct 38.7 L, MCV 95.1 H, MCH 32.2 H, MCHC 33.9, RDW Std Deviation 42.6, RDW Coeff of Sea 12.3, Plt Count 223, MPV 8.8, Immature Gran % (Auto) 1.000 H, Neut % (Auto) 76.6 H, Lymph % (Auto) 12.0 L, [place] % (Auto) 7.7, Eos % (Auto) 2.1, Baso % (Auto) 0.6, Absolute Neuts (auto) 6.8, Absolute Lymphs (auto) 1.06, Nucleated RBC % 0, Sodium 136, Potassium 4.2, Chloride 103, Carbon Dioxide 29.0, Anion Gap 4 L, BUN 26 H, Creatinine 1.50 H, Estim Creat Clear Calc 62.23, Est GFR (MDRD) Af Amer 61, Est GFR (MDRD) Non-Af 50 L, BUN/Creatinine Ratio 17.3, Glucose 139 H, Calcium 8.8, Troponin I High Sens 9 03/30/24 05:10: WBC 7.7, RBC 4.02 L, Hgb 12.9 L, Hct 38.3 L, MCV 95.3 H, MCH 32.1 H, MCHC 33.7, RDW Std Deviation 42.8, RDW Coeff of Sea 12.3, Plt Count 208, MPV 8.9, Sodium 137, Potassium 3.8, Chloride 105, Carbon Dioxide 25.0, Anion Gap 7, BUN 23 H, Creatinine 1.12, Estim Creat Clear Calc 82.49, Est GFR (MDRD) Af Amer 85, Est GFR (MDRD) Non-Af 71, BUN/Creatinine Ratio 20.5 H, Glucose 121 H, Calcium 8.6 Radiography Diagnostic Testing: Radiology Impression Chest X-Ray 03/29/24 19:45 IMPRESSION: No radiographic evidence of acute cardiopulmonary disease. Electronically Signed: Rasta Rosas MD at 20:05 EDT Reading Location ID and State: [facility] / [place] Tel , Service support , D/C Instructions Discharge Diet: Low fat / Low cholesterol Meaningful Use Info Meaningful Use Meaningful Use Diagnoses (Choose all that apply): None applicable Ischemic Stroke Statin Dosing Therapy Reference: STATIN DOSE THERAPY REFERENCE: * Patients > 75 years receive moderate or high dose statin therapy. * Patients 75 years or YOUNGER should receive HIGH intensity statin dose unless contraindicated. You will be required to document reason for non-treatment if statin daily dose does not meet guidelines. HIGH DOSE STATIN THERAPY DAILY Atorvastatin > than or = to 40 mg Rosuvastatin > than or = to 20 mg Amlodipine + Atorvastatin > than or = to 2.5/40 mg Ezetimibe + Simvastatin 10/80 mg Simvastatin 80mg Discharge Plan Admission Admit Date/Time: 03/29/24 20:19 Primary Reason for Your Visit: Syncope Attending Provider: Brandon Hernandez Primary Care Provider: Eddy Disla Consulting Providers: Geronimo Montero Instructions Additional Instructions / Restrictions: You had a syncopal episode, also known as fainting or passing out, this is likely due to dehydration from working outside and but also taking your diuretic (also known as water pill, furosemide). I am going to recommend that your diuretic as needed for weight gain or swelling in your legs to hopefully help prevent this from happening in the future. If you do have another episode, notify your physician or return to the emergency room. Discharge Orders/Prescriptions Prescriptions: Continued losartan 50 mg Tablet 50 mg PO DAILY 30 Days Qty: 30 3RF carvedilol 6.25 mg Tablet 6.25 mg PO BID 30 Days Qty: 60 3RF aspirin 81 mg capsule 81 mg PO DAILY 30 Days Qty: 30 3RF clopidogrel [Plavix] 75 mg tablet 75 mg PO DAILY 30 Days Qty: 30 5RF trazodone 50 mg tablet 50 mg PO QHS PRN (Reason: sleep) amlodipine 5 mg tablet 5 mg PO BID Changed furosemide 40 mg tablet 40 mg PO DAILY PRN (Reason: For edema or weight gain of 2 pounds in 1 day or 3) Qty: 30 0RF Patient Comments: pt takes it when he thinks he needs it but is suppose to take once a day Referrals / Follow Up: [facility] [Provider Group] - 05/07/24 9:00 am Eddy Disla DO [Primary Care Provider] - Within 2 Weeks Disposition Disposition (needs filled in before D/C Order can be placed): Home, Self Care Charges/Coding Visit Charges Inpatient E&M: 35518 Disch Hosp >30min
--- NOTE | 2024-03-30 10:24 | PHA.DC.MR.R ---
Pharmacy [place] Med Reconciliation Pharmacy Service has performed discharge medication reconciliation for this patient. No new medications at time of discharge medication list review. Medications reviewed are from previously reported home medications. The patient's discharge medication list was reviewed for discrepancies and discrepancies were resolved. Medications at Discharge Home Medications aspirin 81 mg capsule 81 mg PO DAILY Heart Health 30 days #30 caps 12/19/23 carvedilol 6.25 mg tablet 6.25 mg PO BID 30 days #60 tabs 12/19/23 clopidogrel 75 mg tablet (Plavix) 75 mg PO DAILY 1 month #30 tabs 12/19/23 losartan 50 mg tablet 50 mg PO DAILY 30 days #30 tabs 12/19/23 amlodipine 5 mg tablet 5 mg PO BID 03/29/24 trazodone 50 mg tablet 50 mg PO QHS PRN sleep 03/29/24 furosemide 40 mg tablet 40 mg PO DAILY PRN For edema or weight gain of 2 pounds in 1 day or 3 #30 tabs 03/30/24
--- NOTE | 2024-03-30 10:58 | CASEMGMT ---
Patient has order for discharge. RN CM in to discuss needs at discharge. Patient denies needs or help at discharge. Patient had no further questions or concerns.
== END 2024-03-30 10:02 | disposition home or self-care (01) ==
LOC: ED 20:02 → PCU 20:30
PROVIDERS: Admitting Provider Hospitalist; Emergency Provider Emergency Medicine; PCP Family Medicine
DX: R55 Syncope and collapse (principal); I50.22 Chronic systolic (congestive) heart failure; I11.0 Hypertensive heart disease with heart failure; N17.9 Acute kidney failure, unspecified; I25.10 Atherosclerotic heart disease of native coronary artery without angina pectoris; Z95.5 Presence of coronary angioplasty implant and graft; E78.5 Hyperlipidemia, unspecified; G47.30 Sleep apnea, unspecified; Z79.899 Other long term (current) drug therapy; Z79.02 Long term (current) use of antithrombotics/antiplatelets; Z79.82 Long term (current) use of aspirin; H53.8 Other visual disturbances; E66.9 Obesity, unspecified; Z68.32 Body mass index [BMI] 32.0-32.9, adult
CPT/HCPCS: 71045; 80048; 84484; 85025; 85027; 93005; 96360; 96361; 99221; 99285; J7120; A4216; G0378

== ENCOUNTER → 2024-04-18 | Outpatient (CLI) | payer OTHER, SELFPAY ==
[2024-04-18 10:43] LABS: Anion Gap 5 (5-15); BUN 18 mg/dL (7-18); BUN/Creat Ratio 15.3 RATIO (10-20); Calcium,Total 8.9 mg/dL (8.5-10.1); Chloride 105 mmol/L (98-107); Creatinine, Serum 1.18 mg/dL (0.70-1.30); EST Glomerular Filtration Rate 66 mL/min (>60); Est Glom Filt Rate - Afr Amer 80 mL/min (>60); Glucose 120 mg/dL (74-106); Potassium 4.2 mmol/L (3.5-5.1); Sodium Level 136 mmol/L (136-145)
== END | disposition home or self-care (01) ==
PROVIDERS: PCP Family Medicine; Referring Provider Internal Medicine Cardiovascular Disease; Visit Provider Internal Medicine Cardiovascular Disease
DX: R06.00 Dyspnea, unspecified (principal); I25.10 Atherosclerotic heart disease of native coronary artery without angina pectoris; I10 Essential (primary) hypertension
CPT/HCPCS: 36415; 80048; 83880